=== PATIENT | male | born 1955 | race Caucasian/White ===

== ENCOUNTER 2017-06-02 14:31 | Inpatient (IN) ==
[2017-06-02 14:59] LABS: Bilirubin,Urine Small (Negative); Blood,Urine Negative (Negative); Clarity,Urine Cloudy (Clear); Color,Urine Dark Yellow (Yellow); Glucose,Urine (UA) Normal (Normal); Ketones,Urine Trace mg/dL (Negative); Leukocyte Esterase,Urine Trace (Negative); Nitrite,Urine Negative (Negative); Protein,Urine Negative (Neg-Trace); Urobilinogen,Urine Normal (Normal)
[2017-06-02 15:02] LABS: Bacteria,Urine None Seen per hpf (None-Few); Hyaline Casts,Urine None Seen per lpf (None-Few); Squamous Epithelial Cell,Urine Few per lpf (None-Few); WBC,Urine 0-3 per hpf (0-3)
[2017-06-02 15:15] LABS: RBC,Urine 0-3 per hpf (0-3)
[2017-06-02 15:22] LABS: Basophils % 0.1 %; Hematocrit 46.5 % (37.5-50.1); Hemoglobin 16.6 g/dL (12.9-16.9); Immature Granulocytes % 0.5 % (0-4); Lymphocytes # 0.7 K/mcL (0.6-4.6); Mean Corpuscular HGB Conc 35.7 g/dL (31.6-35.5); Mean Corpuscular Hemoglobin 31.4 pg (28.0-33.3); Mean Corpuscular Volume 88.1 fL (83.0-100.0); Mean Platelet Volume 10.8 fL (9.4-12.4); Monocytes # 1.2 K/mcL (0.0-1.3); Neutrophils # 21.1 K/mcL (1.6-8.9); Platelet Count 300 K/mcL (140-400); Red Blood Count 5.28 M/mcL (4.19-5.50); Red Cell Distribution Width 13.7 % (11.5-14.5); Segmented Neutrophils % 91.4 %
[2017-06-02] MEDS ORDERED: Ondansetron 4 MG/2 ML VIAL IVP ONE (15:29)
[2017-06-02] MEDS ORDERED: 0.9 % Sodium Chloride 1,000 ML IVC ONE (15:29)
[2017-06-02] MEDS ORDERED: *HR* FentaNYL (PF) 100 MCG/2 ML VIAL IVP ONE ×4 (15:31→19:46)
--- NOTE | 2017-06-02 15:32 | Emergency Department Note ---
Disposition Clinical Impression: Colitis, Mass of stomach GI bleeding Qualifiers: GI bleed type/associated pathology: unspecified gastrointestinal hemorrhage type Qualified Code(s): K92.2 - Gastrointestinal hemorrhage, unspecified Disposition: Admitted As Inpatient Condition: Good Time of Disposition: 18:56 Abdominal Pain HPI - General Chief Complaint: ED Abdominal Pain Stated Complaint: Abdominal Pain, "blood in stool" Time Seen by Provider: 06/02/17 15:14 Source: patient Nursing Notes Reviewed: Yes Vital Signs Reviewed: Yes - History of Present Illness HPI Narrative: Complaining of abdominal cramping that started around 5 AM this morning. Then he started having a bright red stool around 10 AM. Denies any shortness of breath or chest pain. Reports cramping sensation across his whole abdomen with the worsening in his lower abdomen. Nausea and 3 episodes of vomiting. Pain Scale: 10 - Related Data Home Medications Medication Instructions Recorded Confirmed Aspirin Enteric Coated [Aspirin EC] 81 mg PO DAILY 06/02/17 06/02/17 Atorvastatin Calcium [Lipitor] 80 mg PO HS 06/02/17 06/02/17 Clopidogrel [Plavix] 75 mg PO DAILY 06/02/17 06/02/17 Cyclobenzaprine [Flexeril] 10 mg PO TID 06/02/17 06/02/17 Finasteride [Proscar] 5 mg PO DAILY 06/02/17 06/02/17 Lisinopril [Lisinopril] 2.5 mg PO DAILY 06/02/17 06/02/17 Metoprolol [Lopressor] 25 mg PO BID 06/02/17 06/02/17 Nitroglycerin [Nitrostat] 0.4 mg PO Q5M PRN 06/02/17 06/02/17 Tamsulosin [Flomax] 0.4 mg PO DAILY 06/02/17 06/02/17 Allergies Allergy/AdvReac Type Severity Reaction Status Date / Time No Known Allergies Allergy Unverified 08/09/15 07:59 All systems ED: reviewed and negative except as stated. Constitutional: Denies: fever, chills Cardiovascular: Denies: chest pain, palpitations, edema Respiratory: Denies: cough, dyspnea Gastrointestinal: Reports: abdominal pain (Cramping sensation across the whole abdomen worse in the lower quadrants. ), nausea, vomiting, hematochezia. Denies: hematemesis, melena Genitourinary: Denies: urgency, dysuria, frequency, hematuria Musculoskeletal: Denies: back pain, neck pain Integumentary: Denies: rash Neurological: Denies: headache, weakness Abdominal Pain PMH - Past Medical History Medical history: Reports: hyperlipidemia, hypertension Male Surgical History: Reports: angioplasty/stent, orthopedic, other Psychiatric history: Reports: no psych history - Social History Smoking status: Current every day smoker Alcohol use: Reports: rarely Drug use: Reports: none Physical Exam - General Limitations: no limitations General appearance: alert, in distress (Appears to be in pain) - Head Head exam: atraumatic, normocephalic, normal inspection - Eye Eye exam: Present: normal appearance, PERRL, EOMI. Absent: scleral icterus - ENT ENT exam: normal exam, normal oropharynx, mucous membranes moist - Neck Neck exam: Present: normal inspection, full ROM, trachea midline - Chest Chest inspection: Present: normal inspection, symmetric chest wall rise. Absent : tenderness - Respiratory Respiratory exam: Present: normal lung sounds bilaterally. Absent: respiratory distress, accessory muscle use - Cardiovascular Cardiovascular exam: Present: regular rate, normal rhythm, normal heart sounds - Abdominal Exam Abdominal exam: Present: soft, tenderness (Palpation of entire abdomen), guarding, normal bowel sounds. Absent: distention, rigidity, organomegaly - Extremities Exam Extremities exam: Present: normal inspection, full ROM, normal capillary refill. Absent: tenderness, pedal edema - Neurological Exam Neurological exam: Present: alert, oriented X3 - Psychiatric Psychiatric exam: Present: normal affect, normal mood - Skin Skin exam: Present: warm, dry, intact, normal color Course Course Narrative: Male patient presenting to the emergency department complaining of abdominal pain that started around 5 AM this morning. 8 around 10:00 he started having rectal bleeding. He describes it as bright red. Has never happened to him before. He describes abdominal pain as a cramping sensation that is still present at this time. He has had 2-3 episodes of nausea and vomiting since the pain started this morning. He has no history of cancer. Is a smoker. Denies any blood thinning agents. Patient denies any shortness of breath or chest pain. His lung sounds are clear heart tones are normal. His abdomen is soft but exquisitely tender. His pain is out of proportion. He is not appear to be peritoneal on exam however. Echo exam he does have bright red blood per rectum. I do not appreciate any fissures or hemorrhoids. Will provide patient with pain medication and antinausea medication will do lab workup and get a CT with contrast of his abdomen and pelvis. Patient's vitals are currently stable. - Reevaluation(s) Reevaluation #1: Pt states that pain medication did help him. CT of patient's abdomen showed a probable mass in the patient's stomach as well as ascending colitis. We will start patient on Cipro Flagyl we did speak with Dr. Marin who is requesting admission for the patient. I agree with this plan. His vitals have been stable he is here. Hemoglobin has been normal. Fecal occult stool was positive grossly for blood. Time: 18:53 - Consultations Consultation #1: Dr Kendall accepted Pt in stable condition. Time: 19:39 Consultation #2: Dr Metzger spoke with Dr Coronado who recommends admission. Vital Signs Temperature 97.7 F 06/02/17 14:33 Pulse Rate 89 06/02/17 14:33 Respiratory Rate 18 06/02/17 14:33 Blood Pressure 137/77 06/02/17 14:33 O2 Sat by Pulse Oximetry 98 06/02/17 14:33 Temperature 98.2 F 06/02/17 22:36 Pulse Rate 92 06/02/17 22:36 Respiratory Rate 16 06/02/17 22:36 Blood Pressure 144/74 06/02/17 22:36 O2 Sat by Pulse Oximetry 93 06/02/17 22:36 Oxygen Delivery Oxygen Delivery Room Air Abdominal Pain - Medical Records Medical records reviewed: Yes I reviewed the patient's medical records. - Lab Data Lab results reviewed: Yes I reviewed the patient's lab results. Result diagrams: 06/02/17 14:37 06/02/17 14:37 Lab Results 06/02/17 06/02/17 06/02/17 Range/Units 14:37 14:37 14:48 WBC 23.1 H (4.3-11.1) K/mcL RBC 5.28 (4.19-5.50) M/mcL Hgb 16.6 (12.9-16.9) g/dL Hct 46.5 (37.5-50.1) % MCV 88.1 (83.0-100.0) fL MCH 31.4 (28.0-33.3) pg MCHC 35.7 H (31.6-35.5) g/dL RDW 13.7 (11.5-14.5) % Plt Count 300 (140-400) K/mcL MPV 10.8 (9.4-12.4) fL Immature Gran % 0.5 (0-4) % Seg Neutrophils % 91.4 % Lymphocytes % 3.0 % Monocytes % 5.0 % Eosinophils % 0.0 % Basophils % 0.1 % Neutrophils # 21.1 H (1.6-8.9) K/mcL Lymphocytes # 0.7 (0.6-4.6) K/mcL Monocytes # 1.2 (0.0-1.3) K/mcL Eosinophils # 0.0 (0.0-0.6) K/mcL Basophils # 0.0 (0.0-0.2) K/mcL Platelet Estimate Normal (Normal) PT (9.4-12.1) Seconds INR APTT (26.0-36.0) Seconds Sodium 135 L (136-145) mEq/L Potassium 4.1 (3.5-5.1) mEq/L Chloride 106 (98-107) mEq/L Carbon Dioxide 19 L (23-29) mEq/L BUN 15 (8-23) mg/dL Creatinine 0.80 (0.70-1.30) mg/dL Est GFR ( Amer) > 60 (> 60) Est GFR (Non-Af Amer) > 60 (> 60) BUN/Creatinine Ratio 19 (6-26) Glucose 188 H (70-105) mg/dL Calculated Osmolality 286 (280-300) Lactic Acid (0.5-2.2) mmol/L Calcium 9.8 (8.6-10.3) mg/dL Total Bilirubin (0.3-1.0) mg/dL Direct Bilirubin (0.0-0.2) mg/dL Indirect Bilirubin (0.0-1.2) mg/dL AST (13-39) Units/L ALT (7-52) Units/L Alkaline Phosphatase (34-104) Units/L Troponin I (< 0.04) ng/mL Serum Total Protein (6.4-8.9) g/dL Albumin (3.5-5.7) g/dL Globulin (2.4-3.5) g/dL Albumin/Globulin Ratio (1.1-2.2) Lipase (11-82) Units/L Urine Color Dark Yellow (Yellow) Urine Clarity Cloudy A (Clear) Urine pH 6.0 (5.0-8.0) pH Units Ur Specific [place] 1.020 (1.010-1.025) Urine Protein Negative (Neg-Trace) mg/dL Urine Glucose (UA) Normal (Normal) mg/dL Urine Ketones Trace H (Negative) mg/dL Urine Blood Negative (Negative) Urine Nitrite Negative (Negative) Urine Bilirubin Small H (Negative) Urine Urobilinogen Normal (Normal) mg/dL Ur Leukocyte Esterase Trace H (Negative) Urine Microscopic RBC 0-3 (0-3) per hpf Urine Microscopic WBC 0-3 (0-3) per hpf Ur Squamous Epith Cells Few (None-Few) per lpf Urine Bacteria None Seen (None-Few) per hpf Hyaline Casts None Seen (None-Few) per lpf Ur Culture Indicated? YES A (NO) Blood Type Antibody Screen 06/02/17 06/02/17 06/02/17 Range/Units 15:00 15:43 15:43 WBC (4.3-11.1) K/mcL RBC (4.19-5.50) M/mcL Hgb (12.9-16.9) g/dL Hct (37.5-50.1) % MCV (83.0-100.0) fL MCH (28.0-33.3) pg MCHC (31.6-35.5) g/dL RDW (11.5-14.5) % Plt Count (140-400) K/mcL MPV (9.4-12.4) fL Immature Gran % (0-4) % Seg Neutrophils % % Lymphocytes % % Monocytes % % Eosinophils % % Basophils % % Neutrophils # (1.6-8.9) K/mcL Lymphocytes # (0.6-4.6) K/mcL Monocytes # (0.0-1.3) K/mcL Eosinophils # (0.0-0.6) K/mcL Basophils # (0.0-0.2) K/mcL Platelet Estimate (Normal) PT 11.3 (9.4-12.1) Seconds INR 1.1 APTT 29.3 (26.0-36.0) Seconds Sodium (136-145) mEq/L Potassium (3.5-5.1) mEq/L Chloride (98-107) mEq/L Carbon Dioxide (23-29) mEq/L BUN (8-23) mg/dL Creatinine (0.70-1.30) mg/dL Est GFR ( Amer) (> 60) Est GFR (Non-Af Amer) (> 60) BUN/Creatinine Ratio (6-26) Glucose (70-105) mg/dL Calculated Osmolality (280-300) Lactic Acid (0.5-2.2) mmol/L Calcium (8.6-10.3) mg/dL Total Bilirubin 0.8 (0.3-1.0) mg/dL Direct Bilirubin 0.2 (0.0-0.2) mg/dL Indirect Bilirubin 0.6 (0.0-1.2) mg/dL AST 16 (13-39) Units/L ALT 21 (7-52) Units/L Alkaline Phosphatase 96 (34-104) Units/L Troponin I < 0.03 (< 0.04) ng/mL Serum Total Protein 6.8 (6.4-8.9) g/dL Albumin 4.2 (3.5-5.7) g/dL Globulin 2.6 (2.4-3.5) g/dL Albumin/Globulin Ratio 1.6 (1.1-2.2) Lipase < 3 L (11-82) Units/L Urine Color (Yellow) Urine Clarity (Clear) Urine pH (5.0-8.0) pH Units Ur Specific [place] (1.010-1.025) Urine Protein (Neg-Trace) mg/dL Urine Glucose (UA) (Normal) mg/dL Urine Ketones (Negative) mg/dL Urine Blood (Negative) Urine Nitrite (Negative) Urine Bilirubin (Negative) Urine Urobilinogen (Normal) mg/dL Ur Leukocyte Esterase (Negative) Urine Microscopic RBC (0-3) per hpf Urine Microscopic WBC (0-3) per hpf Ur Squamous Epith Cells (None-Few) per lpf Urine Bacteria (None-Few) per hpf Hyaline Casts (None-Few) per lpf Ur Culture Indicated? (NO) Blood Type O POSITIVE Antibody Screen NEGATIVE 06/02/17 06/02/17 06/02/17 Range/Units 15:43 18:31 22:25 WBC (4.3-11.1) K/mcL RBC (4.19-5.50) M/mcL Hgb (12.9-16.9) g/dL Hct (37.5-50.1) % MCV (83.0-100.0) fL MCH (28.0-33.3) pg MCHC (31.6-35.5) g/dL RDW (11.5-14.5) % Plt Count (140-400) K/mcL MPV (9.4-12.4) fL Immature Gran % (0-4) % Seg Neutrophils % % Lymphocytes % % Monocytes % % Eosinophils % % Basophils % % Neutrophils # (1.6-8.9) K/mcL Lymphocytes # (0.6-4.6) K/mcL Monocytes # (0.0-1.3) K/mcL Eosinophils # (0.0-0.6) K/mcL Basophils # (0.0-0.2) K/mcL Platelet Estimate (Normal) PT (9.4-12.1) Seconds INR APTT (26.0-36.0) Seconds Sodium (136-145) mEq/L Potassium (3.5-5.1) mEq/L Chloride (98-107) mEq/L Carbon Dioxide (23-29) mEq/L BUN (8-23) mg/dL Creatinine (0.70-1.30) mg/dL Est GFR ( Amer) (> 60) Est GFR (Non-Af Amer) (> 60) BUN/Creatinine Ratio (6-26) Glucose (70-105) mg/dL Calculated Osmolality (280-300) Lactic Acid 2.1 1.5 (0.5-2.2) mmol/L Calcium (8.6-10.3) mg/dL Total Bilirubin (0.3-1.0) mg/dL Direct Bilirubin (0.0-0.2) mg/dL Indirect Bilirubin (0.0-1.2) mg/dL AST (13-39) Units/L ALT (7-52) Units/L Alkaline Phosphatase (34-104) Units/L Troponin I 0.03 (< 0.04) ng/mL Serum Total Protein (6.4-8.9) g/dL Albumin (3.5-5.7) g/dL Globulin (2.4-3.5) g/dL Albumin/Globulin Ratio (1.1-2.2) Lipase (11-82) Units/L Urine Color (Yellow) Urine Clarity (Clear) Urine pH (5.0-8.0) pH Units Ur Specific [place] (1.010-1.025) Urine Protein (Neg-Trace) mg/dL Urine Glucose (UA) (Normal) mg/dL Urine Ketones (Negative) mg/dL Urine Blood (Negative) Urine Nitrite (Negative) Urine Bilirubin (Negative) Urine Urobilinogen (Normal) mg/dL Ur Leukocyte Esterase (Negative) Urine Microscopic RBC (0-3) per hpf Urine Microscopic WBC (0-3) per hpf Ur Squamous Epith Cells (None-Few) per lpf Urine Bacteria (None-Few) per hpf Hyaline Casts (None-Few) per lpf Ur Culture Indicated? (NO) Blood Type Antibody Screen - Radiology Data Radiology results reviewed: Yes I reviewed the patient's radiology results. Abdomen/Pelvis CT 06/02/17 15:30 IMPRESSION: Acute colitis of the descending colon. Incidentally noted mass within the stomach, worrisome for malignancy. Recommend upper endoscopy for further evaluation. D/ / Chris Leslie MD / Chris Leslie MD Interpreting Provider: Chris Leslie MD - EKG Data EKG attestation: Yes I reviewed and interpreted this EKG. EKG results narrative: Normal sinus rhythm at a rate of 90. HI intervals 171. QRS duration is 77. QT is 332. QTC is 379. No signs of acute ischemia. No significant change from previous EKG dated 05/18/2014. Attestation Statement - Attestation Attestation: I examined this patient and my medical decision-making was reviewed with the Resident Physician. I agree with the documented findings, disposition and treatment plan as described except to the extent set forth below. Findings consistent with stomach mass as well as colitis. Patient was started on antibiotics, C. difficile will be checked. Consult to general surgery for inpatient endoscopy to evaluate abdominal mass. There is evidence of GI hemorrhage. The patient has stable hemoglobin. Proceed with admission for further evaluation.
[2017-06-02 15:40] LABS: BUN/Creatinine Ratio 19 (6-26); Blood Urea Nitrogen 15 mg/dL (8-23); Calcium 9.8 mg/dL (8.6-10.3); Carbon Dioxide 19 mEq/L (23-29); Chloride 106 mEq/L (98-107); Glucose 188 mg/dL (70-105); Osmolality,Calculated 286 (280-300); Potassium 4.1 mEq/L (3.5-5.1); Sodium 135 mEq/L (136-145); eGFR For African Americans > 60 (> 60); eGFR For Non-African Americans > 60 (> 60)
[2017-06-02 15:47] LABS: Platelet Estimate Normal (Normal)
[2017-06-02 16:24] LABS: INR 1.1; Prothrombin Time 11.3 Seconds (9.4-12.1)
[2017-06-02 16:27] LABS: Activated Partial Thrombo Time 29.3 Seconds (26.0-36.0)
[2017-06-02 16:28] LABS: Alanine Aminotransferase 21 Units/L (7-52); Albumin 4.2 g/dL (3.5-5.7); Albumin/Globulin Ratio 1.6 (1.1-2.2); Alkaline Phosphatase 96 Units/L (34-104); Aspartate Amino Transferase 16 Units/L (13-39); Bilirubin,Direct 0.2 mg/dL (0.0-0.2); Bilirubin,Indirect 0.6 mg/dL (0.0-1.2); Bilirubin,Total 0.8 mg/dL (0.3-1.0); Globulin 2.6 g/dL (2.4-3.5); Lipase < 3 Units/L (11-82); Total Protein 6.8 g/dL (6.4-8.9)
[2017-06-02] MEDS ORDERED: *HR* LORazepam 2 MG/ML VIAL IVP ONE (16:28)
[2017-06-02 16:30] LABS: Troponin I < 0.03 ng/mL (< 0.04)
[2017-06-02] MEDS ORDERED: MetroNIDAZOLE 500 MG/100 ML 500 MG/100 ML BAG IVPB ONE (18:15)
[2017-06-02] MEDS: 0.9 % Sodium Chloride 1,000 ML IVC SCH ×2 (20:03→23:15)
--- NOTE | 2017-06-02 21:30 | Internal Med History&Physical ---
Date of Encounter: 06/02/17 Time of Encounter: 21:27 Assessment and Plan (1) CAD (coronary artery disease) Current visit: Yes Status: Chronic History of angioplasty , on plavix . About 18 years no recent angioplasty or stent placemento would be safe to stop the Plavix at this point Qualifiers: Coronary Disease-Associated Artery/Lesion type: [place] artery [place] vs. transplanted heart: [place] heart Associated angina: without angina Qualified Code(s): I25.10 - Atherosclerotic heart disease of [place] coronary artery without angina pectoris (2) HTN (hypertension) Current visit: Yes Status: Chronic Chronic we will resume home medication Qualifiers: Hypertension type: essential hypertension Qualified Code(s): I10 - Essential (primary) hypertension (3) Hyperlipidemia Current visit: Yes Status: Chronic Chronic check a lipid profile in a.m. Qualifiers: Hyperlipidemia type: pure hypercholesterolemia Qualified Code(s): E78.00 - Pure hypercholesterolemia, unspecified; E78.0 - Pure hypercholesterolemia (4) Colitis Current visit: Yes Status: Acute Acute colitis white count is 23,000 will continue on Flagyl and Cipro (5) GI bleeding Current visit: Yes Status: Acute Lower GI bleed of rectal bleeding started this morning hemoglobin is [address] Marin is consulted Qualifiers: GI bleed type/associated pathology: unspecified gastrointestinal hemorrhage type Qualified Code(s): K92.2 - Gastrointestinal hemorrhage, unspecified (6) Mass of stomach Current visit: Yes Status: Acute Incidental finding of mass in the stomach will need further evaluation (7) Leukocytosis Current visit: Yes Status: Acute Leukocytosis with left shift likely due to colitis Qualifiers: Leukocytosis type: bandemia Qualified Code(s): D72.825 - Bandemia Internal Medicine - H&P: HPI Chief complaint: rcatal bleeding Admitted From: Emergency Dept Plans for Post Hospital Care: Home History of present illness: Mr. Pritchett is a 62 year old male Patient with history of CAD had a stent placed in the past and been on plavix for about 18 years, history of high cholesterol, smoking history. Patient presented emergency room with lower abdominal pain describes a crampy also some rectal bleeding started this morning had had 3 episode of nausea and vomiting but no vomiting of blood CT of the abdomen the ER shows probable mass in the stomach with ascending colitis He is started on Flagyl and Cipro in the ER hemoglobin is 16 he is hemodynamically stable Dr. Marin is consulted for endoscopy. Denies any chest pain no shortness of breath no other symptoms no prior history of GI bleed Past Med Surg Social Fam HX - Past Medical History Medical history: coronary artery disease, hyperlipidemia, hypertension Psychiatric history: no psych history - Past Surgical History Surgical History: angioplasty/stent - Social History Smoking Status: Current every day smoker Smokeless Tobacco Status: No Alcohol use: rarely Drug use: none Internal Medicine - H&P: Meds Aspirin Enteric Coated [Aspirin EC] 81 mg PO DAILY 06/02/17 [History] Atorvastatin Calcium [Lipitor] 80 mg PO HS 06/02/17 [History] Clopidogrel [Plavix] 75 mg PO DAILY 06/02/17 [History] Cyclobenzaprine [Flexeril] 10 mg PO TID 06/02/17 [History] Finasteride [Proscar] 5 mg PO DAILY 06/02/17 [History] Lisinopril [Lisinopril] 2.5 mg PO DAILY 06/02/17 [History] Metoprolol [Lopressor] 25 mg PO BID 06/02/17 [History] Nitroglycerin [Nitrostat] 0.4 mg PO Q5M PRN 06/02/17 [History] Tamsulosin [Flomax] 0.4 mg PO DAILY 06/02/17 [History] 3 Allergy/AdvReac Type Severity Reaction Status Date / Time No Known Allergies Allergy Unverified 08/09/15 07:59 All Systems PM: A 10-system review of systems was performed and is negative for pertinent findings except as documented above in the HPI. - Constitutional Constitutional: other - EENT Eyes: no change in vision, no discharge, no pain, no photophobia Ears: no ear discharge, no ear pain, no tinnitus Nose, mouth and throat: no dysphagia, no nasal discharge, no neck pain, no sore throat - Cardiovascular Cardiovascular ROS IM: no chest pain, no diaphoresis, no dyspnea, no lightheadedness, no palpitations, no syncope - Respiratory Respiratory: no cough, no dyspnea, no wheezing, no excessive phlegm production - Gastrointestinal Gastrointestinal: hematochezia, other - Musculoskeletal Musculoskeletal ROS IM: no numbness, no tingling - Integumentary Integumentary IM: no rash, no unusual bruising - Constitutional Vitals: Temp Pulse Resp BP Pulse Ox 97.7 F 87 18 161/76 93 06/02/17 14:33 06/02/17 21:05 06/02/17 17:14 06/02/17 21:05 06/02/17 21:05 - Head Head exam: Present: atraumatic, normocephalic - Eye Eye exam: Present: PERRL, conjuntiva pink, sclera anicteric Pupils: Present: PERRL - Neck Neck exam general surgery: Present: supple, trachea midline. Absent: lymphadenopathy - Respiratory Respiratory exam: Present: CTAB. Absent: accessory muscle use, rales, rhonchi, wheezes - Cardiovascular Cardiovascular exam: Present: RRR, +S1, +S2. Absent: diastolic murmur, gallop, rubs, systolic murmur - GI/Abdominal GI/Abdominal exam: Present: mass, tenderness Internal Med - H&P Results - Labs CBC & Chem 7: 06/02/17 14:37 06/02/17 14:37
[2017-06-02] MEDS ORDERED: Naloxone 0.4 MG/ML INJ IVP PRN (21:40)
[2017-06-02] MEDS: MetroNIDAZOLE 500 MG/100 ML 500 MG/100 ML BAG IVPB SCH (23:15)
[2017-06-03] MEDS: 0.9 % Sodium Chloride 1,000 ML IVC SCH ×4 (02:36→20:24)
[2017-06-03 04:21] LABS: Basophils % 0.2 %; Eosinophils % 0.1 %; Hematocrit 39.6 % (37.5-50.1); Immature Granulocytes % 0.6 % (0-4); Lymphocytes # 1.5 K/mcL (0.6-4.6); Lymphocytes % 7.8 %; Mean Corpuscular HGB Conc 35.4 g/dL (31.6-35.5); Mean Corpuscular Hemoglobin 31.6 pg (28.0-33.3); Mean Corpuscular Volume 89.4 fL (83.0-100.0); Mean Platelet Volume 10.8 fL (9.4-12.4); Monocytes # 1.5 K/mcL (0.0-1.3); Monocytes % 7.6 %; Platelet Count 254 K/mcL (140-400); Red Blood Count 4.43 M/mcL (4.19-5.50); Red Cell Distribution Width 13.9 % (11.5-14.5); Segmented Neutrophils % 83.7 %
[2017-06-03 04:33] LABS: Alanine Aminotransferase 15 Units/L (7-52); Albumin 3.6 g/dL (3.5-5.7); Albumin/Globulin Ratio 1.6 (1.1-2.2); Alkaline Phosphatase 69 Units/L (34-104); Aspartate Amino Transferase 12 Units/L (13-39); BUN/Creatinine Ratio 15 (6-26); Bilirubin,Total 0.8 mg/dL (0.3-1.0); Blood Urea Nitrogen 11 mg/dL (8-23); Calcium 8.5 mg/dL (8.6-10.3); Carbon Dioxide 22 mEq/L (23-29); Chloride 108 mEq/L (98-107); Chol/HDL Ratio 3.6 (0-4.9); Cholesterol 130 mg/dL (< 200); Globulin 2.2 g/dL (2.4-3.5); Glucose 142 mg/dL (70-105); HDL Cholesterol 36 mg/dL (40-59); LDL Cholesterol,Calculated 77 mg/dL (0-99); Magnesium 1.8 mg/dL (1.6-2.6); Osmolality,Calculated 286 (280-300); Potassium 3.5 mEq/L (3.5-5.1); Sodium 137 mEq/L (136-145); Total Protein 5.8 g/dL (6.4-8.9); Triglycerides 84 mg/dL (< 150); eGFR For African Americans > 60 (> 60); eGFR For Non-African Americans > 60 (> 60)
[2017-06-03] MEDS ORDERED: Acetaminophen IV 500 MG/50 ML INFUS..BTL IVPB ONE (06:12)
[2017-06-03] MEDS: MetroNIDAZOLE 500 MG/100 ML 500 MG/100 ML BAG IVPB SCH ×3 (07:57→22:54)
[2017-06-03] MEDS: Pantoprazole 40 MG VIAL IVP SCH (07:57)
[2017-06-03] MEDS: Finasteride 5 MG TABLET PO SCH (07:58)
[2017-06-03] MEDS: Acetaminophen 325 MG TABLET PO PRN (08:00)
[2017-06-03] MEDS ORDERED: *HR* FentaNYL (PF) 100 MCG/2 ML VIAL IVP ONE ×2 (08:24→16:14)
[2017-06-03 09:06] LABS: Hematocrit 38.4 % (37.5-50.1); Hemoglobin 13.1 g/dL (12.9-16.9)
[2017-06-03 11:00] LABS: Hematocrit 37.6 % (37.5-50.1); Hemoglobin 13.3 g/dL (12.9-16.9)
[2017-06-03] MEDS ORDERED: Polyethylene Glycol 3350 255 GM POWDER PO ONE (11:25)
--- NOTE | 2017-06-03 11:32 | General Surgery Consult Note ---
Date of Encounter: 06/03/17 Time of Encounter: 11:00 Assessment and Plan (1) Colitis Current Visit: Yes Status: Acute No urgent surgical intervention indicated at this time Continue bowel rest IF fluids IV antibiotics- Cipro and Flagyl are appropriate Serial abdominal exams Plan for interval colonoscopy in 6-[address] Coronado Continue to monitor blood loss (2) Mass of stomach Current Visit: Yes Status: Acute NPO IV fluids Plan for EGD in the next 24 hours with General surgery for further evaluation History of Present Illness Consult date: 06/03/17 Requesting physician: Ainsley Huntley History of present illness: Mr. Pritchett is a 62 year old male who presented to the ED with acute onset of central abdominal pain at 5am yesterday morning. The patient reports having pain like this in the past. He reports that the pain yesterday was followed by multiple episodes of bright red blood per rectum (he is unable to quantify how much blood). The patient denies any feeling of dizziness, syncope, shortness of breath or chest pain. He states that he did feel hot prior to passing blood and then after passing bright red blood per rectum he was freezing. He denies any dysphagia. He does admit to nausea and vomiting yesterday and states that he vomited 4-5 times. He denies any hematemesis or coffee-ground emesis. He denies any fevers. He denies any difficulty with urination. The patient states that he typically has a bowel movement on a daily basis however occasionally he does have constipation and goes 4-5 days without a bowel movement. He states his last colonoscopy was 5 years ago and he had 2 polyps removed at the [facility]. He cannot recall whether he is ever had an EGD. He denies any unexplained weight loss. He has had an abnormal CAT scan which shows evidence of colitis and a gastric mass. We have been asked to see and evaluate the patient for evaluation and recommendations. Past Med Surg Social Fam HX - Past Medical History Source: patient, old records reviewed Medical history: arthritis, hyperlipidemia, hypertension, other (Fibromyalgia, chronic back pain, degenerative disc disease) Psychiatric history: no psych history - Past Surgical History Surgical History: angioplasty/stent, appendectomy (Open), knee replacement ( bilateral), orthopedic, other (Between both of his knees), other (Colonoscopy complete 5 years ago) - Social History Smoking Status: Current every day smoker Smokeless Tobacco Status: No Alcohol use: rarely Drug use: none Current living situation: Home - Independent Activity Level: Independent ambulation - Family History Father Living Status: Hx Family Cardiac Disorders: Yes (cva, HTN) Hx Family Respiratory Disorders: No Hx Family Cancer: No Hx Family GI Disorders: No Hx Family Genitourinary Disorders: No Hx Family Endocrine Disorder: Yes (Diabetes Mellitus) Hx Family Musculoskeletal Disorders: No Hx Family Neuromuscular Disorders: No Hx Family Neurologic Disorders: No Hx Family HEENT Disorders: No Hx Family Autoimmune Disorders: No Hx Family Reproductive Disorders: No Hx Family Psychosocial Disorders: No Hx Family Medical Disorders: No Mother Living Status: Hx Family Cardiac Disorders: No Hx Family Respiratory Disorders: Yes (copd) Hx Family Cancer: Yes Hx Family GI Disorders: No Hx Family Genitourinary Disorders: No Hx Family Endocrine Disorder: Yes (Diabetes Mellitus) Hx Family Musculoskeletal Disorders: No Hx Family Neuromuscular Disorders: No Hx Family Neurologic Disorders: No Hx Family HEENT Disorders: No Hx Family Autoimmune Disorders: No Hx Family Reproductive Disorders: No Hx Family Psychosocial Disorders: No Hx Family Medical Disorders: No Medications and Allergies Aspirin Enteric Coated [Aspirin EC] 81 mg PO DAILY 06/02/17 [History] Atorvastatin Calcium [Lipitor] 80 mg PO HS 06/02/17 [History] Clopidogrel [Plavix] 75 mg PO DAILY 06/02/17 [History] Cyclobenzaprine [Flexeril] 10 mg PO TID 06/02/17 [History] Finasteride [Proscar] 5 mg PO DAILY 06/02/17 [History] Lisinopril [Lisinopril] 2.5 mg PO DAILY 06/02/17 [History] Metoprolol [Lopressor] 25 mg PO BID 06/02/17 [History] Nitroglycerin [Nitrostat] 0.4 mg PO Q5M PRN 06/02/17 [History] Tamsulosin [Flomax] 0.4 mg PO DAILY 06/02/17 [History] 3 Allergy/AdvReac Type Severity Reaction Status Date / Time No Known Allergies Allergy Unverified 08/09/15 07:59 Review of Systems All systems PM: reviewed and no additional remarkable complaints except as stated (in the HPI) All systems PM: The remainder of the systems were reviewed and are negative General Surgery Exam Initial Vital Signs Temp Pulse Resp BP Pulse Ox 97.7 F 89 18 137/77 98 06/02/17 14:33 06/02/17 14:33 06/02/17 14:33 06/02/17 14:33 06/02/17 14:33 - General physical appearance well developed, well nourished, no distress - Eyes other (Conjunctiva are pink), PERRL, normal ocular movement - ENT dry mucosa, atraumatic, normocephalic - Neck trachea midline - Respiratory normal respiratory effort, clear to auscultation - Cardiovascular Cardiovascular exam: Present: RRR - Abdomen Abdomen general surgery: Present: bowel sounds present, soft, tender (central abdomen) - Integumentary Integumentary general surgery: Present: warm and dry - Neurologic Present: CN 2-12 grossly intact - Musculoskeletal Present: normal gait, normal posture - Psychiatric Psychiatric general surgery: Present: appropriate, oriented to person, oriented to place, oriented to time, speech is normal, memory intact Exam Initial Vital Signs Temp Pulse Resp BP Pulse Ox 97.7 F 89 18 137/77 98 06/02/17 14:33 06/02/17 14:33 06/02/17 14:33 06/02/17 14:33 06/02/17 14:33 Results - Labs 06/03/17 10:45 06/03/17 03:49 Abnormal lab results WBC 19.1 K/mcL (4.3-11.1) H 06/03/17 03:49 Neutrophils # 16.0 K/mcL (1.6-8.9) H 06/03/17 03:49 Monocytes # 1.5 K/mcL (0.0-1.3) H 06/03/17 03:49 Chloride 108 mEq/L (98-107) H 06/03/17 03:49 Carbon Dioxide 22 mEq/L (23-29) L 06/03/17 03:49 Glucose 142 mg/dL (70-105) H 06/03/17 03:49 Calcium 8.5 mg/dL (8.6-10.3) L 06/03/17 03:49 AST 12 Units/L (13-39) L 06/03/17 03:49 Serum Total Protein 5.8 g/dL (6.4-8.9) L 06/03/17 03:49 Globulin 2.2 g/dL (2.4-3.5) L 06/03/17 03:49 HDL Cholesterol 36 mg/dL (40-59) L 06/03/17 03:49 Lipase < 3 Units/L (11-82) L 06/02/17 15:43 Urine Clarity Cloudy (Clear) A 06/02/17 14:48 Urine Ketones Trace mg/dL (Negative) H 06/02/17 14:48 Urine Bilirubin Small (Negative) H 06/02/17 14:48 Ur Leukocyte Esterase Trace (Negative) H 06/02/17 14:48 Ur Culture Indicated? YES (NO) A 06/02/17 14:48 Diabetes panel 06/03/17 Range/Units 03:49 Sodium 137 (136-145) mEq/L Potassium 3.5 (3.5-5.1) mEq/L Chloride 108 H (98-107) mEq/L Carbon Dioxide 22 L (23-29) mEq/L BUN 11 (8-23) mg/dL Creatinine 0.73 (0.70-1.30) mg/dL Glucose 142 H (70-105) mg/dL Calcium 8.5 L (8.6-10.3) mg/dL AST 12 L (13-39) Units/L ALT 15 (7-52) Units/L Alkaline Phosphatase 69 (34-104) Units/L Albumin 3.6 (3.5-5.7) g/dL Triglycerides 84 (< 150) mg/dL HDL Cholesterol 36 L (40-59) mg/dL Calcium panel 06/03/17 Range/Units 03:49 Calcium 8.5 L (8.6-10.3) mg/dL Albumin 3.6 (3.5-5.7) g/dL Pituitary panel 06/03/17 Range/Units 03:49 Sodium 137 (136-145) mEq/L Potassium 3.5 (3.5-5.1) mEq/L Chloride 108 H (98-107) mEq/L Carbon Dioxide 22 L (23-29) mEq/L BUN 11 (8-23) mg/dL Creatinine 0.73 (0.70-1.30) mg/dL Glucose 142 H (70-105) mg/dL Calcium 8.5 L (8.6-10.3) mg/dL Adrenal panel 03/15/18 Range/Units 03:49 Sodium 137 (136-145) mEq/L Potassium 3.5 (3.5-5.1) mEq/L Chloride 108 H (98-107) mEq/L Carbon Dioxide 22 L (23-29) mEq/L BUN 11 (8-23) mg/dL Creatinine 0.73 (0.70-1.30) mg/dL Glucose 142 H (70-105) mg/dL Calcium 8.5 L (8.6-10.3) mg/dL Total Bilirubin 0.8 (0.3-1.0) mg/dL AST 12 L (13-39) Units/L ALT 15 (7-52) Units/L Alkaline Phosphatase 69 (34-104) Units/L Albumin 3.6 (3.5-5.7) g/dL All other labs normal. - Imaging CT scan - abdomen: report reviewed CT scan - pelvis: report reviewed Additional studies: Abdomen/Pelvis CT 06/02/17 15:30 IMPRESSION: Acute colitis of the descending colon. Incidentally noted mass within the stomach, worrisome for malignancy. Recommend upper endoscopy for further evaluation. D/ / Chris Leslie MD / Chris Leslie MD Interpreting Provider: Chris Leslie MD Consult Discharge Plan - Plan Referrals: Sky Rodriguez DO [Primary Care Provider] - - Attending Attestation For this encounter, I have reviewed the LINESPERSON or PA documentation, treatment plan, and medical decision making; and I have had face to face time with this patient.
[2017-06-03] MEDS: MORPHINE SUL Oral CONC 10 MG/0.5 ML ORAL.SYG SL PRN ×3 (14:13→22:54)
[2017-06-03] MEDS ORDERED: *HR* Midazolam HCl 5 MG/5 ML VIAL IVP ONE (15:49)
[2017-06-03] MEDS ORDERED: *HR* FentaNYL (PF) 100 MCG/2 ML VIAL ONE (15:49)
[2017-06-03] MEDS ORDERED: *HR* Midazolam HCl 2 MG/2 ML VIAL IVP ONE (16:14)
[2017-06-03] MEDS ORDERED: Tetracaine/Benzocaine/Butamben 200MG/SPRAY (100SPY/BOT) MM ONE (16:14)
[2017-06-03 17:24] LABS: Hematocrit 37.5 % (37.5-50.1)
--- NOTE | 2017-06-03 19:03 | Internal Med Progress Note ---
Date of Encounter: 06/03/17 Time of Encounter: 09:35 - Assessment and plan (1) CAD (coronary artery disease) Current Visit: Yes Status: Chronic Assessment and plan: Pt denies chest pain, history of angioplasty and is currently on Plavix. Telemetry Qualifiers: Coronary Disease-Associated Artery/Lesion type: [place] artery [place] vs. transplanted heart: [place] heart Associated angina: without angina Qualified Code(s): I25.10 - Atherosclerotic heart disease of [place] coronary artery without angina pectoris (2) Colitis Current Visit: Yes Status: Acute Assessment and plan: Acute colitis. Leukocytosis. Continue Flagyl and Cipro. Patient will have outpatient colonoscopy in 6-8 weeks with surgery. (3) GI bleeding Current Visit: Yes Status: Acute Assessment and plan: Patient with lower GI bleed, bright red bleeding started him on morning of admission. Hemoglobin is stable currently though decreasing throughout the day. Continue to monitor. Type and screen is completed. Patient will outpatient colonoscopy in 4-6 weeks. 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 There is no stigmata of recent bleeding in the lesser curvature of the stomach. There is a normal duodenal bulb. Qualifiers: GI bleed type/associated pathology: unspecified gastrointestinal hemorrhage type Qualified Code(s): K92.2 - Gastrointestinal hemorrhage, unspecified (4) HTN (hypertension) Current Visit: Yes Status: Chronic Assessment and plan: Chronic. Continue home medications. Qualifiers: Hypertension type: essential hypertension Qualified Code(s): I10 - Essential (primary) hypertension (5) Hyperlipidemia Current Visit: Yes Status: Chronic Assessment and plan: Chronic. Continue home medications. Qualifiers: Hyperlipidemia type: pure hypercholesterolemia Qualified Code(s): E78.00 - Pure hypercholesterolemia, unspecified; E78.0 - Pure hypercholesterolemia (6) Leukocytosis Current Visit: Yes Status: Acute Assessment and plan: Most likely due to colitis. Improving. Continue IV antibiotics, IV fluid hydration, monitor labs. No fever or tachycardia, no signs of SIRS or sepsis. Qualifiers: Leukocytosis type: bandemia Qualified Code(s): D72.825 - Bandemia (7) Mass of stomach Current Visit: Yes Status: Acute Assessment and plan: Plan as above. - Time Spent With Patient less than 15 minutes - Subjective Interval history: Patient was seen and assessed at bedside at 9:35 AM. He reports that 5 AM on day of admission he began having low abdominal cramps, the same ones that He reports having for "years". Approximately 5 hours later he began having diarrhea. Initially the stool was mixed with bright red blood, and eventually became all bright red blood without stool. He reports that his pain is currently controlled with IV normal, later in the day was switched to sublingual Roxanol and he continues to have adequate pain control. He denies any headache, blurred vision, chest pain, shortness of breath. No vomiting or nausea. - Constitutional Vitals: Temp Pulse Resp BP Pulse Ox 99.3 F 84 16 136/77 94 06/03/17 15:52 06/03/17 16:20 06/03/17 16:20 06/03/17 16:20 06/03/17 16:20 General appearance: Present: cooperative, mild distress, A&O X 3, pleasant, answers questions appropriately - Head Head exam: Present: atraumatic, normal inspection, normocephalic - Eye Eye exam: Present: normal appearance, conjuntiva pink, sclera anicteric - Neck Neck exam general surgery: Present: supple, trachea midline. Absent: lymphadenopathy, tenderness - Respiratory Respiratory exam: Present: CTAB. Absent: accessory muscle use, rales, respiratory distress, rhonchi, wheezes - Cardiovascular Cardiovascular exam: Present: RRR, +S1, +S2. Absent: diastolic murmur, gallop, rubs, systolic murmur - GI/Abdominal GI/Abdominal exam: Present: hyperactive bowel sounds, soft, tenderness. Absent : distended, hepatomegaly - Extremities Exam Extremities exam: Present: normal capillary refill, normal inspection, warm, radial pulses palpable and symmetrical. Absent: calf tenderness, cyanotic, pedal edema, tenderness - Neurological Exam Neurological exam: Present: alert, oriented X3, no focal deficits. Absent: facial droop, speech deficit - Skin Skin exam: Present: dry, intact, normal color, warm. Absent: rash Internal Medicine: Result - Labs CBC & Chem 7: 06/03/17 16:40 06/03/17 03:49 Labs: Short CBC 06/03/17 06/03/17 06/03/17 Range/Units 03:49 08:33 10:45 WBC 19.1 H (4.3-11.1) K/mcL Hgb 14.0 D 13.1 13.3 (12.9-16.9) g/dL Hct 39.6 38.4 37.6 (37.5-50.1) % Plt Count 254 (140-400) K/mcL Neutrophils # 16.0 H (1.6-8.9) K/mcL 06/03/17 Range/Units 16:40 WBC (4.3-11.1) K/mcL Hgb 13.0 (12.9-16.9) g/dL Hct 37.5 (37.5-50.1) % Plt Count (140-400) K/mcL Neutrophils # (1.6-8.9) K/mcL BMP 06/03/17 03:49 Sodium 137 Potassium 3.5 Chloride 108 H Carbon Dioxide 22 L BUN 11 Creatinine 0.73 Glucose 142 H Calcium 8.5 L Cardiac Enzymes 06/03/17 06/03/17 Range/Units 03:49 10:45 Troponin I 0.03 < 0.03 (< 0.04) ng/mL Liver Function 06/03/17 Range/Units 03:49 Total Bilirubin 0.8 (0.3-1.0) mg/dL AST 12 L (13-39) Units/L ALT 15 (7-52) Units/L Alkaline Phosphatase 69 (34-104) Units/L Albumin 3.6 (3.5-5.7) g/dL - ABG Interpretation ABG results: PT/INR, D-dimer PT 11.3 Seconds (9.4-12.1) 06/02/17 15:43 Consult Discharge Plan - Plan Referrals: Sky Rodriguez DO [Primary Care Provider] -
[2017-06-03] MEDS: Simethicone 80 MG TAB.CHEW PO PRN (23:00)
[2017-06-04] MEDS: 0.9 % Sodium Chloride 1,000 ML IVC SCH ×2 (00:17→16:47)
[2017-06-04] MEDS: Acetaminophen 325 MG TABLET PO PRN ×3 (02:15→22:27)
[2017-06-04 06:02] LABS: Basophils % 0.2 %; Eosinophils # 0.1 K/mcL (0.0-0.6); Eosinophils % 0.4 %; Hematocrit 36.5 % (37.5-50.1); Hemoglobin 12.6 g/dL (12.9-16.9); Immature Granulocytes % 0.5 % (0-4); Lymphocytes # 2.5 K/mcL (0.6-4.6); Lymphocytes % 15.4 %; Mean Corpuscular HGB Conc 34.5 g/dL (31.6-35.5); Mean Corpuscular Hemoglobin 31.6 pg (28.0-33.3); Mean Corpuscular Volume 91.5 fL (83.0-100.0); Mean Platelet Volume 10.8 fL (9.4-12.4); Monocytes # 1.3 K/mcL (0.0-1.3); Monocytes % 7.9 %; Neutrophils # 12.3 K/mcL (1.6-8.9); Platelet Count 201 K/mcL (140-400); Red Blood Count 3.99 M/mcL (4.19-5.50); Red Cell Distribution Width 13.7 % (11.5-14.5); Segmented Neutrophils % 75.6 %
[2017-06-04 06:07] LABS: BUN/Creatinine Ratio 11 (6-26); Blood Urea Nitrogen 7 mg/dL (8-23); Calcium 8.2 mg/dL (8.6-10.3); Carbon Dioxide 23 mEq/L (23-29); Chloride 110 mEq/L (98-107); Glucose 123 mg/dL (70-105); Osmolality,Calculated 285 (280-300); Potassium 3.6 mEq/L (3.5-5.1); Sodium 138 mEq/L (136-145); eGFR For African Americans > 60 (> 60); eGFR For Non-African Americans > 60 (> 60)
[2017-06-04] MEDS: MetroNIDAZOLE 500 MG/100 ML 500 MG/100 ML BAG IVPB SCH ×2 (08:12→16:44)
[2017-06-04] MEDS: Pantoprazole 40 MG VIAL IVP SCH (08:13)
[2017-06-04] MEDS: Finasteride 5 MG TABLET PO SCH (08:13)
--- NOTE | 2017-06-04 14:53 | Event Note ---
Date of Encounter: 06/04/17 Time of Encounter: 14:51 Patient is s/p EGD with Dr. Coronado and biopsy of gastric mass Pathology pending Plan for outpatient follow-up to discuss results and to discuss interval colonoscopy in 6-8 weeks - Patient Status Disposition: Still a Patient Condition: Good Functional capacity at discharge: independent ambulation Overall status at discharge: patient is progressing back to baseline - Discharge Instructions Follow Up With: Sky Rodriguez DO [Primary Care Provider] - Kyree Coronado DO [Partnered Physician] - 06/15/17 10:50 am (Hospital follow-up ) - Diet and Activity Diet: other (Low fiber diet)
--- NOTE | 2017-06-04 18:26 | Internal Med Progress Note ---
Date of Encounter: 06/04/17 Time of Encounter: 08:30 - Assessment and plan (1) CAD (coronary artery disease) Current Visit: Yes Status: Chronic Assessment and plan: Patient denies chest pain. Continue Plavix after discharge. Continue telemetry. Qualifiers: Coronary Disease-Associated Artery/Lesion type: [place] artery [place] vs. transplanted heart: [place] heart Associated angina: without angina Qualified Code(s): I25.10 - Atherosclerotic heart disease of [place] coronary artery without angina pectoris (2) Colitis Current Visit: Yes Status: Acute Assessment and plan: Acute cholangitis and descending colon. Leukocytosis is improving. Continue Flagyl and Cipro, may de-escalate to by mouth bleeding slowed. Monitor blood loss and hemoglobin. Outpatient colonoscopy in 6-8 weeks with surgery. (3) GI bleeding Current Visit: Yes Status: Acute Assessment and plan: Patient reports no bleeding since yesterday morning, then at episode bright red rectal bleeding today. Hemoglobin continues to trend down. Surgery is aware, cannot proceed with colonoscopy at this time due to inflammation:. Continue to monitor blood loss and hemoglobin. Patient is aware that he is staying to monitor hemoglobin and bleeding. Do not advance diet beyond full liquids until bleeding is controlled. Qualifiers: GI bleed type/associated pathology: unspecified gastrointestinal hemorrhage type Qualified Code(s): K92.2 - Gastrointestinal hemorrhage, unspecified (4) HTN (hypertension) Current Visit: Yes Status: Chronic Assessment and plan: Chronic. Continue home medications. Qualifiers: Hypertension type: essential hypertension Qualified Code(s): I10 - Essential (primary) hypertension (5) Hyperlipidemia Current Visit: Yes Status: Chronic Assessment and plan: Chronic. Continue home medication. Qualifiers: Hyperlipidemia type: pure hypercholesterolemia Qualified Code(s): E78.00 - Pure hypercholesterolemia, unspecified; E78.0 - Pure hypercholesterolemia (6) Leukocytosis Current Visit: Yes Status: Acute Assessment and plan: Improving. Secondary to colitis Continue IV fluids and antibiotics, monitor labs. Patient has no fever or tachycardia no signs of SIRS or sepsis. Qualifiers: Leukocytosis type: bandemia Qualified Code(s): D72.825 - Bandemia (7) Mass of stomach Current Visit: Yes Status: Acute Assessment and plan: EGD on 06/03. Biopsy taken, results pending Follow-up with surgery after discharge. - Time Spent With Patient less than 15 minutes - Subjective Interval history: Patient was seen and assessed at bedside at 0830. He denies any headache, blurred vision, chest pain, shortness of breath. No vomiting or nausea. Patient reports earlier today that he had had no hematochezia since yesterday, states that it return once today. Bleeding is bright red. His aware that we keeping him to monitor his hemoglobin and control his pain. We also discussed outpatient colonoscopy in 6-8 weeks. He reports that he is getting adequate pain control. - Constitutional Vitals: Temp Pulse Resp BP Pulse Ox 99.1 F 64 15 126/74 96 06/04/17 16:45 06/04/17 16:45 06/04/17 16:45 06/04/17 16:45 06/04/17 16:45 General appearance: Present: cooperative, mild distress, A&O X 3, pleasant, no acute distress, answers questions appropriately - Head Head exam: Present: atraumatic, normal inspection, normocephalic - Eye Eye exam: Present: conjuntiva pink, sclera anicteric - Neck Neck exam general surgery: Present: supple, trachea midline. Absent: lymphadenopathy - Respiratory Respiratory exam: Present: CTAB. Absent: accessory muscle use, chest wall tenderness, prolonged expiratory phase, rales, rhonchi, wheezes - Cardiovascular Cardiovascular exam: Present: RRR, +S1, +S2. Absent: diastolic murmur, gallop, rubs, systolic murmur - GI/Abdominal GI/Abdominal exam: Present: normal bowel sounds, soft. Absent: distended, hepatomegaly, rigid, tenderness - Extremities Exam Extremities exam: Present: normal capillary refill, warm, radial pulses palpable and symmetrical. Absent: calf tenderness, cyanotic, pedal edema, tenderness - Neurological Exam Neurological exam: Present: alert, oriented X3, no focal deficits. Absent: facial droop, speech deficit - Skin Skin exam: Present: dry, intact, normal color, warm. Absent: rash Internal Medicine: Result - Labs CBC & Chem 7: 06/04/17 05:31 06/04/17 05:31 Labs: Short CBC 06/04/17 Range/Units 05:31 WBC 16.3 H (4.3-11.1) K/mcL Hgb 12.6 L (12.9-16.9) g/dL Hct 36.5 L (37.5-50.1) % Plt Count 201 (140-400) K/mcL Neutrophils # 12.3 H (1.6-8.9) K/mcL BMP 06/04/17 05:31 Sodium 138 Potassium 3.6 Chloride 110 H Carbon Dioxide 23 BUN 7 L Creatinine 0.64 L Glucose 123 H Calcium 8.2 L - ABG Interpretation ABG results: PT/INR, D-dimer PT 11.3 Seconds (9.4-12.1) 06/02/17 15:43 Consult Discharge Plan - Plan Referrals: Kyree Coronado DO [Partnered Physician] - 06/15/17 10:50 am (Hospital follow-up ) Sky Rodriguez DO [Primary Care Provider] -
[2017-06-04] MEDS: Ondansetron 4 MG/2 ML VIAL IVP PRN (20:13)
[2017-06-05] MEDS: Ondansetron 4 MG/2 ML VIAL IVP PRN
[2017-06-05] MEDS: Simethicone 80 MG TAB.CHEW PO PRN ×3 (03:59→13:45)
[2017-06-05] MEDS: MetroNIDAZOLE 500 MG/100 ML 500 MG/100 ML BAG IVPB SCH ×2 (09:21)
[2017-06-05] MEDS: Finasteride 5 MG TABLET PO SCH (09:22)
[2017-06-05] MEDS: Pantoprazole 40 MG VIAL IVP SCH (09:23)
[2017-06-05] MEDS: MORPHINE SUL Oral CONC 10 MG/0.5 ML ORAL.SYG SL PRN (09:48)
[2017-06-05 09:49] LABS: Basophils # 0.1 K/mcL (0.0-0.2); Basophils % 0.3 %; Eosinophils # 0.1 K/mcL (0.0-0.6); Eosinophils % 0.6 %; Hematocrit 37.2 % (37.5-50.1); Hemoglobin 12.8 g/dL (12.9-16.9); Immature Granulocytes % 0.3 % (0-4); Lymphocytes % 13.4 %; Mean Corpuscular HGB Conc 34.4 g/dL (31.6-35.5); Mean Corpuscular Hemoglobin 31.5 pg (28.0-33.3); Mean Corpuscular Volume 91.6 fL (83.0-100.0); Mean Platelet Volume 10.5 fL (9.4-12.4); Monocytes # 0.9 K/mcL (0.0-1.3); Monocytes % 6.3 %; Neutrophils # 11.6 K/mcL (1.6-8.9); Platelet Count 211 K/mcL (140-400); Red Blood Count 4.06 M/mcL (4.19-5.50); Red Cell Distribution Width 13.4 % (11.5-14.5); Segmented Neutrophils % 79.1 %
[2017-06-05 12:09] VITALS: BP 133/82
[2017-06-05 15:47] LABS: Basophils # 0.1 K/mcL (0.0-0.2); Basophils % 0.3 %; Eosinophils # 0.1 K/mcL (0.0-0.6); Eosinophils % 0.7 %; Hematocrit 37.5 % (37.5-50.1); Immature Granulocytes % 0.5 % (0-4); Immature Platelets 4.8 % (1.1-6.1); Lymphocytes # 2.5 K/mcL (0.6-4.6); Lymphocytes % 17.1 %; Mean Corpuscular HGB Conc 34.7 g/dL (31.6-35.5); Mean Corpuscular Hemoglobin 31.7 pg (28.0-33.3); Mean Corpuscular Volume 91.5 fL (83.0-100.0); Mean Platelet Volume 10.5 fL (9.4-12.4); Monocytes % 7.2 %; Neutrophils # 10.6 K/mcL (1.6-8.9); Platelet Count 230 K/mcL (140-400); Red Cell Distribution Width 13.3 % (11.5-14.5); Segmented Neutrophils % 74.2 %
--- NOTE | 2017-06-05 17:29 | Discharge Summary ---
Orders not resulted at time of discharge: Pending orders 06/03/17 03:49 Culture,Blood,Additional [BC] Routine 06/03/17 16:25 Surgical Pathology [PTH] Routine 06/06/17 04:00 Basic Metabolic Panel AM 0400 Complete Blood Count [HEME] AM 0400 Date of Encounter: 06/05/17 Time of Encounter: 09:15 - Discharge Diagnosis (1) CAD (coronary artery disease) Priority: Primary Status: Chronic Comments: No chest pain. Continue Plavix after follow-up with primary care. Qualifiers: Coronary Disease-Associated Artery/Lesion type: [place] artery [place] vs. transplanted heart: [place] heart Associated angina: without angina Qualified Code(s): I25.10 - Atherosclerotic heart disease of [place] coronary artery without angina pectoris (2) Colitis Priority: Secondary Status: Acute Comments: Patient with acute colitis in the descending colon. Patient had mild leukocytosis that is improving. Patient with GI bleed, as well. Bleeding has slowed and hemoglobin is increasing. Patient will be sent home with prescriptions for Flagyl, Cipro. Patient reports intermittent cramping in the abdomen and states that he has medication at home. Patient will also be given a prescription for gas x for bloating. Patient had KUB today that was negative or any acute findings. Bowel sounds are present. Patient will need to follow-up with primary care, he is also to have a colonoscopy in 6-8 weeks with surgery. (3) GI bleeding Priority: Secondary Status: Acute Comments: Patient reports decrease in bleeding, now just with intermittent clots mixed with formed stool. Hemoglobin has trended back up to within normal limits. Pt is to have a colonoscopy outpatient with surgery in 6-8 weeks. She denied discussed diet, suggested avoiding dairy, hypo-foods, high acid foods. Qualifiers: GI bleed type/associated pathology: unspecified gastrointestinal hemorrhage type Qualified Code(s): K92.2 - Gastrointestinal hemorrhage, unspecified (4) HTN (hypertension) Priority: Secondary Status: Chronic Comments: Chronic. Continue home medications. Qualifiers: Hypertension type: essential hypertension Qualified Code(s): I10 - Essential (primary) hypertension (5) Hyperlipidemia Priority: Secondary Status: Chronic Comments: Chronic. Continue home medications. Qualifiers: Hyperlipidemia type: pure hypercholesterolemia Qualified Code(s): E78.00 - Pure hypercholesterolemia, unspecified; E78.0 - Pure hypercholesterolemia (6) Leukocytosis Priority: Secondary Status: Acute Comments: Improving. Secondary to colitis. Continue by mouth antibiotics and follow up with primary care. She has no fever, no tachycardia, no hypotension, no signs of sirs or sepsis. Qualifiers: Leukocytosis type: bandemia Qualified Code(s): D72.825 - Bandemia (7) Mass of stomach Priority: Secondary Status: Acute Comments: Patient had an EGD on 06/03. Biopsy was taken and the results are pending. Follow-up with surgery after discharge. (8) Anemia due to blood loss Priority: Secondary Status: Acute Comments: Secondary to GI bleed. Patient has been monitored, bleeding has slowed. He reports just clots mixed with solid stool. Hemoglobin has returned to normal limits. Patient might have a long discussion about returning immediately to the emergency department closest to him if bleeding begins again, he become short of breath, weak or pale, diaphoretic. He verbalized understanding. I have given him an outpatient order for CBC in 3 days with results to primary care. Hospital course: Mr. Pritchett is a 62 year old male with PMH of hyperlipidemia, smoking. Presented to the emergency department on day of admission with lower abdominal pain, crampy, rectal bleeding. CT of the abdomen in the ER showed probable mass in the stomach with colitis. Patient has been started on Cipro and Flagyl IV in the ER, hemoglobin again dropping, though he was still stable. EGD by Dr. Marin, colonoscopy outpatient in 6-8 weeks Hemoglobin has returned within normal limits. Patient still has mild leukocytosis secondary to colitis. Patient will follow with Dr. Marin for biopsy results of stomach mass. Labs and vitals are stable and within normal limits. Prescriptions were called to pharmacy, patient is being discharged with an outpatient order for CBC in 3 days with results to primary care. Patient is stable and appropriate for discharge. Discharge discussed with: patient - Time Spent with Patient Total time spent providing and/or coordinating discharge services: Less than 30 minutes - Discharge Medications Prescriptions: Ciprofloxacin [Cipro] 500 mg PO BID #10 tablet metroNIDAZOLE [Flagyl] 500 mg PO TID #15 tablet Simethicone [Gas-X] 80 mg PO TID PRN #90 tab.chew PRN Reason: Dyspepsia Home Medications: Aspirin Enteric Coated [Aspirin EC] 81 mg PO DAILY 06/02/17 [History] Atorvastatin Calcium [Lipitor] 80 mg PO HS 06/02/17 [History] Clopidogrel [Plavix] 75 mg PO DAILY 06/02/17 [History] Cyclobenzaprine [Flexeril] 10 mg PO TID 06/02/17 [History] Finasteride [Proscar] 5 mg PO DAILY 06/02/17 [History] Lisinopril 2.5 mg PO DAILY 06/02/17 [History] Metoprolol [Lopressor] 25 mg PO BID 06/02/17 [History] Nitroglycerin [Nitrostat] 0.4 mg PO Q5M PRN 06/02/17 [History] Tamsulosin [Flomax] 0.4 mg PO DAILY 06/02/17 [History] Ciprofloxacin [Cipro] 500 mg PO BID #10 tablet 06/05/17 [Rx] Simethicone [Gas-X] 80 mg PO TID PRN #90 tab.chew 06/05/17 [Rx] metroNIDAZOLE [Flagyl] 500 mg PO TID #15 tablet 06/05/17 [Rx] Allergies/Adverse Reactions: 3 Allergy/AdvReac Type Severity Reaction Status Date / Time No Known Allergies Allergy Unverified 08/09/15 07:59 Date of admission: 06/02/17 23:50 Primary care physician: Sky Rodriguez DO Consults: 06/03/17 12:58 Consult to Revenue Liaison [CONS] Routine Reason for SW Consult: POA paperwork Discharging clinician: Lor Vasquez Anticipated date of discharge: 06/05/17 - Constitutional Vitals: Temp Pulse Resp BP Pulse Ox 98.5 F 62 16 133/82 96 06/05/17 12:08 06/05/17 12:08 06/05/17 12:08 06/05/17 12:08 06/05/17 12:08 General appearance: Present: cooperative, mild distress, A&O X 3, pleasant, no acute distress, answers questions appropriately - Head Head exam: Present: atraumatic, normal inspection, normocephalic - Eye Eye exam: Present: normal appearance, conjuntiva pink, sclera anicteric - Neck Neck exam general surgery: Present: supple, trachea midline. Absent: lymphadenopathy - Respiratory Respiratory exam: Present: CTAB. Absent: accessory muscle use, rales, rhonchi, wheezes - Cardiovascular Cardiovascular exam: Present: RRR, +S1, +S2. Absent: diastolic murmur, gallop, rubs, systolic murmur - GI/Abdominal GI/Abdominal exam: Present: distended, normal bowel sounds, soft. Absent: hepatomegaly, tenderness - Extremities Exam Extremities exam: Present: normal capillary refill, normal inspection, warm, radial pulses palpable and symmetrical. Absent: calf tenderness, cyanotic, pedal edema, tenderness - Neurological Exam Neurological exam: Present: alert, oriented X3, no focal deficits. Absent: facial droop, speech deficit - Skin Skin exam: Present: dry, intact, normal color, warm. Absent: rash - Patient Status Disposition: Home, Self-Care Condition: Good Functional capacity at discharge: independent ambulation Overall status at discharge: patient is progressing back to baseline - Discharge Instructions Follow Up With: Kyree Coronado DO [Partnered Physician] - 06/15/17 10:50 am (Hospital follow-up ) Sky Rodriguez DO [Primary Care Provider] - Additional Instructions: Please follow up with your primary care provider in the next 7-10 days for a recheck. Please have your hemoglobin drawn in 3 days. Return to the emergency department as needed for any other problems or concerns , or if her symptoms return or worsen. Return to the emergency department immediately if bleeding starts again. Eat a bland, low bulk, dairy free diet until you are better. Follow up with surgery as scheduled for biopsy results and for colonoscopy. Take your normal medications, your new prescriptions have been called into the pharmacy. Return to normal activities as tolerated - Diet and Activity Activity: increase activity as tolerated Diet: other
--- NOTE | 2017-06-06 10:00 | Electrocardiograph Report ---
[place] [id number] Test Date: 2017-06-02 Pat Name: Mauricio Pritchett Department: 104 Room: 3B41 Gender: M Nursing Resident: ANGELA : 1955 Requested By: Rubén Taveras Order Number: [id number] Reading MD: Michael Ruiz DO Measurements Intervals [place] Rate: 90 P: 70 NH: 171 QRS: 35 QRSD: 77 T: 73 QT: 332 QTc: 379 Interpretive Statements SINUS RHYTHM WITH OCCASIONAL SUPRAVENTRICULAR PREMATURE COMPLEXES Electronically Signed On 06-06-2017 9:58:24 EDT by Michael Ruiz DO
== END 2017-06-05 18:00 | disposition home or self-care (01) | DRG 392 ==
LOC: 3BNU 14:31 → EMEROO 14:31 → 3BNU 22:19
PROVIDERS: ADMIT Registered Nurse; ATTEND Registered Nurse
PROC: ENDOEBX (2017-06-03 16:00)

== ENCOUNTER 2019-11-21 16:22 | Inpatient (IN) ==
[2019-11-21] MEDS ORDERED: 0.9 % Sodium Chloride 1,000 ML IVC ONE ×3 (17:28→23:21)
[2019-11-21 18:09] LABS: INR 1.1; Prothrombin Time 12.2 Seconds (9.4-12.1)
[2019-11-21 18:10] LABS: Basophils % 0.4 %; Eosinophils # 0.1 K/mcL (0.0-0.6); Eosinophils % 0.5 %; Hematocrit 32.4 % (37.5-50.1); Hemoglobin 10.8 g/dL (12.9-16.9); Immature Granulocytes % 0.5 % (0-4); Lymphocytes # 1.9 K/mcL (0.6-4.6); Lymphocytes % 16.9 %; Mean Corpuscular HGB Conc 33.3 g/dL (31.6-35.5); Mean Corpuscular Hemoglobin 32.4 pg (28.0-33.3); Mean Corpuscular Volume 97.3 fL (83.0-100.0); Mean Platelet Volume 11.3 fL (9.4-12.4); Monocytes # 0.5 K/mcL (0.0-1.3); Monocytes % 4.4 %; Neutrophils # 8.5 K/mcL (1.6-8.9); Platelet Count 248 K/mcL (140-400); Red Blood Count 3.33 M/mcL (4.19-5.50); Red Cell Distribution Width 13.5 % (11.5-14.5); Segmented Neutrophils % 77.3 %
[2019-11-21 18:31] LABS: BUN/Creatinine Ratio 46 (6-26); Blood Urea Nitrogen 34 mg/dL (8-23); Calcium 8.9 mg/dL (8.6-10.3); Carbon Dioxide 23 mEq/L (23-29); Chloride 109 mEq/L (98-107); Glucose 116 mg/dL (70-105); Osmolality,Calculated 295 (280-300); Sodium 138 mEq/L (136-145); eGFR For African Americans > 60 (> 60); eGFR For Non-African Americans > 60 (> 60)
[2019-11-21] MEDS ORDERED: Naloxone 0.4 MG/ML INJ IVP PRN (20:59)
[2019-11-21] MEDS ORDERED: Pantoprazole 40 MG VIAL IVP SCH (23:45)
[2019-11-21 23:47] LABS: Hematocrit 25.8 % (37.5-50.1); Mean Corpuscular HGB Conc 33.3 g/dL (31.6-35.5); Mean Corpuscular Hemoglobin 32.8 pg (28.0-33.3); Mean Corpuscular Volume 98.5 fL (83.0-100.0); Mean Platelet Volume 10.8 fL (9.4-12.4); Platelet Count 215 K/mcL (140-400); Red Blood Count 2.62 M/mcL (4.19-5.50); Red Cell Distribution Width 13.6 % (11.5-14.5); White Blood Count 7.6 K/mcL (4.3-11.1)
[2019-11-21 23:54] LABS: Hemoglobin 8.6 g/dL (12.9-16.9)
[2019-11-22] MEDS ORDERED: 0.9 % Sodium Chloride 1,000 ML IVC ONE (03:30)
[2019-11-22 05:36] LABS: Hematocrit 21.1 % (37.5-50.1); Mean Corpuscular HGB Conc 32.7 g/dL (31.6-35.5); Mean Corpuscular Hemoglobin 32.5 pg (28.0-33.3); Mean Corpuscular Volume 99.5 fL (83.0-100.0); Mean Platelet Volume 10.9 fL (9.4-12.4); Platelet Count 188 K/mcL (140-400); Red Blood Count 2.12 M/mcL (4.19-5.50); Red Cell Distribution Width 13.5 % (11.5-14.5); White Blood Count 7.7 K/mcL (4.3-11.1)
[2019-11-22 05:37] LABS: Hemoglobin 6.9 g/dL (12.9-16.9)
[2019-11-22 05:54] LABS: Alanine Aminotransferase 7 Units/L (7-52); Albumin 2.7 g/dL (3.5-5.7); Albumin/Globulin Ratio 1.9 (1.1-2.2); Alkaline Phosphatase 34 Units/L (34-104); Aspartate Amino Transferase 7 Units/L (13-39); BUN/Creatinine Ratio 59 (6-26); Bilirubin,Total 0.3 mg/dL (0.3-1.0); Blood Urea Nitrogen 36 mg/dL (8-23); Calcium 7.2 mg/dL (8.6-10.3); Carbon Dioxide 23 mEq/L (23-29); Chloride 115 mEq/L (98-107); Globulin 1.4 g/dL (2.4-3.5); Glucose 102 mg/dL (70-105); Magnesium 1.5 mg/dL (1.6-2.6); Osmolality,Calculated 299 (280-300); Phosphorous 1.9 mg/dL (2.7-4.5); Sodium 140 mEq/L (136-145); Total Protein 4.1 g/dL (6.4-8.9); eGFR For African Americans > 60 (> 60); eGFR For Non-African Americans > 60 (> 60)
[2019-11-22] MEDS ORDERED: 0.9 % Sodium Chloride 250 ML IVC SCH (06:00)
[2019-11-22 09:30] LABS: Hematocrit 24.4 % (37.5-50.1); Hemoglobin 8.1 g/dL (12.9-16.9)
[2019-11-22] MEDS ORDERED: 0.9 % Sodium Chloride 250 ML ONE (09:59)
[2019-11-22] MEDS: Pantoprazole 40 MG in 0.9 % Sodium Chloride Mini Bag 100 ML IVC SCH ×3 (10:16→20:30)
[2019-11-22] MEDS ORDERED: *HR* Propofol 200 MG/20 ML VIAL IVP ONE ×3 (12:18→22:45)
[2019-11-22] MEDS ORDERED: Lidocaine -MPF 2% 2 ML VIAL ONE ×3 (12:19→22:44)
[2019-11-22] MEDS ORDERED: *HR* PHENYLEPHRINE 1,000 MCG/10 ML SYRINGE IVP ONE ×2 (12:55→21:01)
[2019-11-22] MEDS ORDERED: Isovue-370 500 ML BOTTLE IVP ONE (13:55)
[2019-11-22] MEDS ORDERED: 0.9 % Sodium Chloride 1,000 ML IVC SCH (18:45)
[2019-11-22 19:09] LABS: Basophils % 0.5 %; Eosinophils # 0.1 K/mcL (0.0-0.6); Hematocrit 23.4 % (37.5-50.1); Hemoglobin 7.9 g/dL (12.9-16.9); Immature Granulocytes % 0.5 % (0-4); Lymphocytes # 2.7 K/mcL (0.6-4.6); Lymphocytes % 31.9 %; Mean Corpuscular HGB Conc 33.8 g/dL (31.6-35.5); Mean Corpuscular Hemoglobin 31.5 pg (28.0-33.3); Mean Corpuscular Volume 93.2 fL (83.0-100.0); Mean Platelet Volume 11.2 fL (9.4-12.4); Monocytes # 0.4 K/mcL (0.0-1.3); Monocytes % 5.3 %; Neutrophils # 5.1 K/mcL (1.6-8.9); Platelet Count 160 K/mcL (140-400); Red Blood Count 2.51 M/mcL (4.19-5.50); Red Cell Distribution Width 15.2 % (11.5-14.5); Segmented Neutrophils % 60.8 %; White Blood Count 8.4 K/mcL (4.3-11.1)
[2019-11-22] MEDS ORDERED: *HR* Rocuronium Bromide 50 MG/5 ML VIAL ONE (22:44)
[2019-11-22] MEDS ORDERED: Dexamethasone 4 MG/ML VIAL ONE (22:44)
[2019-11-22] MEDS ORDERED: Ondansetron 4 MG/2 ML VIAL ONE (22:44)
[2019-11-22] MEDS ORDERED: *HR* FentaNYL (PF) 100 MCG/2 ML VIAL ONE (22:44)
[2019-11-22] MEDS ORDERED: *HR* Labetalol 20 MG/4 ML SYRINGE IVP PRN (22:52)
[2019-11-22] MEDS ORDERED: Ondansetron 4 MG/2 ML VIAL IVP PRN (22:52)
[2019-11-22] MEDS ORDERED: *HR* Promethazine 25 MG/ML VIAL IVP PRN (22:52)
[2019-11-22] MEDS ORDERED: Acetaminophen IV 1,000 MG/100 ML INFUS..BTL ONE (22:55)
[2019-11-22] MEDS ORDERED: Albumin Human 5% 12.5 GM/250 ML IV.SOLN ONE (22:55)
[2019-11-22] MEDS ORDERED: EPHEDrine 50 MG/ML VIAL ONE (22:56)
[2019-11-22 23:03] LABS: Hematocrit 22.1 % (37.5-50.1); Hemoglobin 7.5 g/dL (12.9-16.9)
[2019-11-22] MEDS ORDERED: ceFAZolin 2,000 MG in Water for inj. (sterile) 20 ML IVP ONE (23:15)
[2019-11-23] MEDS ORDERED: *HR* HYDROMORPHONE 2 MG/ML VIAL ONE ×2 (00:16→06:06)
[2019-11-23] MEDS ORDERED: *HR* Rocuronium Bromide 50 MG/5 ML VIAL ONE (01:17)
[2019-11-23] MEDS ORDERED: Ipratropium/Albuterol Neb 3 ML ONE (02:42)
[2019-11-23] MEDS: Ipratropium/Albuterol Neb 3 ML IH ONE (02:51)
[2019-11-23] MEDS: *HR* HYDROmorphone (PF) 1 MG/ML SYRINGE IVP PRN ×6 (02:52→03:28)
[2019-11-23] MEDS ORDERED: Lidocaine -MPF 2% 2 ML VIAL ONE (04:20)
[2019-11-23] MEDS ORDERED: *HR* Succinylcholine 200 MG/10 ML VIAL IVP ONE (04:20)
[2019-11-23] MEDS ORDERED: *HR* Propofol 200 MG/20 ML VIAL IVP ONE (04:21)
[2019-11-23] MEDS ORDERED: EPHEDrine 50 MG/ML VIAL ONE (05:03)
[2019-11-23] MEDS ORDERED: *HR* FentaNYL (PF) 100 MCG/2 ML VIAL ONE (05:09)
[2019-11-23] MEDS ORDERED: Ipratropium/Albuterol Neb 3 ML IH ONE (06:34)
[2019-11-23] MEDS ORDERED: *HR* HYDROmorphone (PF) 1 MG/ML SYRINGE IVP PRN (06:37)
[2019-11-23] MEDS ORDERED: Furosemide 20 MG/2 ML VIAL IVP PRN (06:44)
[2019-11-23] MEDS ORDERED: Furosemide 20 MG/2 ML VIAL IVP ONE (06:48)
[2019-11-23] MEDS ORDERED: Naloxone 0.4 MG/ML INJ IVP PRN (07:52)
[2019-11-23 08:54] LABS: Basophils % 0.1 %; Hematocrit 25.4 % (37.5-50.1); Hemoglobin 8.7 g/dL (12.9-16.9); Immature Granulocytes % 0.3 % (0-4); Lymphocytes # 0.4 K/mcL (0.6-4.6); Lymphocytes % 2.7 %; Mean Corpuscular HGB Conc 34.3 g/dL (31.6-35.5); Mean Corpuscular Hemoglobin 31.8 pg (28.0-33.3); Mean Corpuscular Volume 92.7 fL (83.0-100.0); Mean Platelet Volume 11.1 fL (9.4-12.4); Monocytes % 6.9 %; Neutrophils # 13.5 K/mcL (1.6-8.9); Platelet Count 169 K/mcL (140-400); Red Blood Count 2.74 M/mcL (4.19-5.50); Red Cell Distribution Width 15.8 % (11.5-14.5)
[2019-11-23] MEDS ORDERED: Lidocaine -MPF 1% 5 ML AMPUL INFILT ONE (08:59)
[2019-11-23 09:09] LABS: BUN/Creatinine Ratio 30 (6-26); Blood Urea Nitrogen 26 mg/dL (8-23); Calcium 7.8 mg/dL (8.6-10.3); Carbon Dioxide 18 mEq/L (23-29); Chloride 113 mEq/L (98-107); Glucose 197 mg/dL (70-105); Magnesium 1.7 mg/dL (1.6-2.6); Osmolality,Calculated 300 (280-300); Phosphorous 2.9 mg/dL (2.7-4.5); Potassium 3.8 mEq/L (3.5-5.1); Sodium 140 mEq/L (136-145); eGFR For African Americans > 60 (> 60); eGFR For Non-African Americans > 60 (> 60)
[2019-11-23] MEDS: 0.9 % Sodium Chloride 1,000 ML IVC SCH ×2 (09:20→17:22)
[2019-11-23] MEDS: Pantoprazole 40 MG in 0.9 % Sodium Chloride Mini Bag 100 ML IVC SCH ×3 (09:21→20:39)
[2019-11-23] MEDS ORDERED: *HR* Metoprolol 5 MG/5 ML VIAL IVP PRN (09:24)
[2019-11-23] MEDS ORDERED: D5% in Water 1,000 ML IVC PRN (09:59)
[2019-11-23] MEDS ORDERED: *HR* Dextrose 50 % in Water (Vial) 50 ML VIAL IVP PRN (09:59)
[2019-11-23] MEDS ORDERED: Dextrose Gel 15 GM/37.5 ML TUBE PO PRN ×2 (09:59)
[2019-11-23 10:01] LABS: Magnesium 1.6 mg/dL (1.6-2.6)
[2019-11-23] MEDS ORDERED: Saliva Stimulant 100ml BOTTLE PO PRN (10:37)
[2019-11-23] MEDS ORDERED: Chloraseptic Spray 177 ML BOTTLE MM PRN (10:37)
[2019-11-23] MEDS: Morphine PCA 30 MG/ 30 ML 30 ML PCA.VIAL IVC PRN (10:48)
[2019-11-23] MEDS ORDERED: D10% in Water 500 ML IVC PRN (11:43)
[2019-11-23] MEDS: Insulin LISPRO 300 UNITS/3 ML VIAL SQ SCH ×4 (12:05→23:01)
[2019-11-23] MEDS: Acetaminophen IV 1,000 MG/100 ML INFUS..BTL IVPB SCH ×3 (12:06→23:41)
[2019-11-23] MEDS ORDERED: Clinimix E 5%-15% SOLUTION 2,000 ML with MVI, adult with vitamin K 10 ML IVC SCH (17:00)
[2019-11-23] MEDS: *HR* Heparin 5,000 UNIT/ML VIAL SQ SCH (17:23)
[2019-11-24] MEDS: 0.9 % Sodium Chloride 1,000 ML IVC SCH ×3 (00:21→17:02)
[2019-11-24 02:14] LABS: BUN/Creatinine Ratio 25 (6-26); Blood Urea Nitrogen 18 mg/dL (8-23); Calcium 7.4 mg/dL (8.6-10.3); Carbon Dioxide 20 mEq/L (23-29); Chloride 114 mEq/L (98-107); Glucose 144 mg/dL (70-105); Magnesium 1.8 mg/dL (1.6-2.6); Osmolality,Calculated 294 (280-300); Phosphorous 1.4 mg/dL (2.7-4.5); Potassium 3.6 mEq/L (3.5-5.1); Sodium 140 mEq/L (136-145); eGFR For African Americans > 60 (> 60); eGFR For Non-African Americans > 60 (> 60)
[2019-11-24] MEDS: Insulin LISPRO 300 UNITS/3 ML VIAL SQ SCH ×5 (02:22→20:46)
[2019-11-24] MEDS: Pantoprazole 40 MG in 0.9 % Sodium Chloride Mini Bag 100 ML IVC SCH ×4 (03:16→19:30)
[2019-11-24] MEDS: Acetaminophen IV 1,000 MG/100 ML INFUS..BTL IVPB SCH ×3 (05:25→17:04)
[2019-11-24] MEDS: *HR* Heparin 5,000 UNIT/ML VIAL SQ SCH (06:30)
[2019-11-24 12:54] LABS: Basophils % 0.4 %; Eosinophils # 0.1 K/mcL (0.0-0.6); Eosinophils % 1.2 %; Hematocrit 20.4 % (37.5-50.1); Immature Granulocytes % 0.8 % (0-4); Lymphocytes # 1.3 K/mcL (0.6-4.6); Lymphocytes % 11.5 %; Mean Corpuscular HGB Conc 32.4 g/dL (31.6-35.5); Mean Corpuscular Hemoglobin 31.4 pg (28.0-33.3); Mean Corpuscular Volume 97.1 fL (83.0-100.0); Mean Platelet Volume 11.6 fL (9.4-12.4); Monocytes # 0.7 K/mcL (0.0-1.3); Monocytes % 6.2 %; Platelet Count 151 K/mcL (140-400); Red Cell Distribution Width 15.9 % (11.5-14.5); Segmented Neutrophils % 79.9 %; White Blood Count 11.3 K/mcL (4.3-11.1)
[2019-11-24 12:55] LABS: Hemoglobin 6.6 g/dL (12.9-16.9)
[2019-11-24] MEDS ORDERED: 0.9 % Sodium Chloride 250 ML IVC SCH (13:30)
[2019-11-24] MEDS: Morphine PCA 30 MG/ 30 ML 30 ML PCA.VIAL IVC PRN (16:55)
[2019-11-24] MEDS ORDERED: Clinimix E 5%-15% SOLUTION 2,000 ML with MVI, adult with vitamin K 10 ML IVC SCH (17:00)
[2019-11-24 18:53] LABS: Hematocrit 22.2 % (37.5-50.1); Hemoglobin 7.9 g/dL (12.9-16.9)
[2019-11-25] MEDS: Insulin LISPRO 300 UNITS/3 ML VIAL SQ SCH ×7 (00:01→23:57)
[2019-11-25] MEDS: Acetaminophen IV 1,000 MG/100 ML INFUS..BTL IVPB SCH ×5 (00:04→23:56)
[2019-11-25 00:47] LABS: Hematocrit 22.1 % (37.5-50.1); Hemoglobin 7.3 g/dL (12.9-16.9)
[2019-11-25] MEDS: 0.9 % Sodium Chloride 1,000 ML IVC SCH ×2 (01:48→12:06)
[2019-11-25] MEDS: Pantoprazole 40 MG in 0.9 % Sodium Chloride Mini Bag 100 ML IVC SCH ×6 (01:50→18:53)
[2019-11-25 05:03] LABS: Basophils % 0.4 %; Eosinophils # 0.3 K/mcL (0.0-0.6); Eosinophils % 3.1 %; Hematocrit 21.5 % (37.5-50.1); Hemoglobin 7.2 g/dL (12.9-16.9); Immature Granulocytes % 0.4 % (0-4); Lymphocytes # 1.3 K/mcL (0.6-4.6); Lymphocytes % 14.3 %; Mean Corpuscular HGB Conc 33.5 g/dL (31.6-35.5); Mean Corpuscular Hemoglobin 31.3 pg (28.0-33.3); Mean Corpuscular Volume 93.5 fL (83.0-100.0); Mean Platelet Volume 11.5 fL (9.4-12.4); Monocytes # 0.6 K/mcL (0.0-1.3); Monocytes % 6.8 %; Neutrophils # 6.9 K/mcL (1.6-8.9); Nucleated Red Blood Cells 0.3 /100 WBC (0); Platelet Count 134 K/mcL (140-400); Red Cell Distribution Width 16.1 % (11.5-14.5); White Blood Count 9.2 K/mcL (4.3-11.1)
[2019-11-25 05:29] LABS: BUN/Creatinine Ratio 15 (6-26); Blood Urea Nitrogen 9 mg/dL (8-23); Calcium 7.4 mg/dL (8.6-10.3); Carbon Dioxide 21 mEq/L (23-29); Chloride 113 mEq/L (98-107); Glucose 113 mg/dL (70-105); Magnesium 1.7 mg/dL (1.6-2.6); Osmolality,Calculated 289 (280-300); Potassium 3.1 mEq/L (3.5-5.1); Sodium 140 mEq/L (136-145); eGFR For African Americans > 60 (> 60); eGFR For Non-African Americans > 60 (> 60)
[2019-11-25] MEDS ORDERED: Potassium Phosphate 44 MEQ in 0.9 % Sodium Chloride 250 ML IVPB ONE (07:41)
[2019-11-25] MEDS ORDERED: 0.9 % Sodium Chloride 250 ML IVC SCH (08:00)
[2019-11-25] MEDS ORDERED: Ringers Solution, Lactated 1,000 ML IVC SCH (08:00)
[2019-11-25 12:01] LABS: Hematocrit 20.3 % (37.5-50.1); Hemoglobin 6.7 g/dL (12.9-16.9)
[2019-11-25 15:07] LABS: BUN/Creatinine Ratio 16 (6-26); Blood Urea Nitrogen 9 mg/dL (8-23); Calcium 7.6 mg/dL (8.6-10.3); Carbon Dioxide 23 mEq/L (23-29); Chloride 111 mEq/L (98-107); Glucose 130 mg/dL (70-105); Osmolality,Calculated 286 (280-300); Potassium 3.2 mEq/L (3.5-5.1); Sodium 138 mEq/L (136-145); eGFR For African Americans > 60 (> 60); eGFR For Non-African Americans > 60 (> 60)
[2019-11-25] MEDS ORDERED: Clinimix E 5%-15% SOLUTION 2,000 ML with MVI, adult with vitamin K 10 ML IVC SCH (17:00)
[2019-11-25 21:32] LABS: Hematocrit 24.4 % (37.5-50.1)
[2019-11-25 21:35] LABS: Hemoglobin 8.5 g/dL (12.9-16.9)
[2019-11-25] MEDS: Morphine PCA 30 MG/ 30 ML 30 ML PCA.VIAL IVC PRN (21:49)
[2019-11-26] MEDS: Pantoprazole 40 MG in 0.9 % Sodium Chloride Mini Bag 100 ML IVC SCH ×4 (04:20→20:29)
[2019-11-26] MEDS: Insulin LISPRO 300 UNITS/3 ML VIAL SQ SCH ×5 (04:24→20:30)
[2019-11-26 04:25] LABS: Basophils % 0.4 %; Eosinophils # 0.4 K/mcL (0.0-0.6); Eosinophils % 4.3 %; Hematocrit 23.9 % (37.5-50.1); Hemoglobin 8.1 g/dL (12.9-16.9); Immature Granulocytes % 0.5 % (0-4); Lymphocytes # 1.1 K/mcL (0.6-4.6); Lymphocytes % 11.3 %; Mean Corpuscular HGB Conc 33.9 g/dL (31.6-35.5); Mean Corpuscular Hemoglobin 31.5 pg (28.0-33.3); Mean Platelet Volume 11.3 fL (9.4-12.4); Monocytes # 0.8 K/mcL (0.0-1.3); Monocytes % 7.5 %; Neutrophils # 7.7 K/mcL (1.6-8.9); Nucleated Red Blood Cells 0.3 /100 WBC (0); Platelet Count 171 K/mcL (140-400); Red Blood Count 2.57 M/mcL (4.19-5.50); Red Cell Distribution Width 15.3 % (11.5-14.5); White Blood Count 10.1 K/mcL (4.3-11.1)
[2019-11-26 04:28] LABS: INR 1.1; Prothrombin Time 12.5 Seconds (9.4-12.1)
[2019-11-26 04:44] LABS: BUN/Creatinine Ratio 15 (6-26); Blood Urea Nitrogen 8 mg/dL (8-23); Carbon Dioxide 22 mEq/L (23-29); Chloride 110 mEq/L (98-107); Potassium 3.2 mEq/L (3.5-5.1); Sodium 137 mEq/L (136-145)
[2019-11-26 04:45] LABS: Calcium 7.5 mg/dL (8.6-10.3); Glucose 116 mg/dL (70-105); Magnesium 1.7 mg/dL (1.6-2.6); Osmolality,Calculated 283 (280-300); Phosphorous 2.7 mg/dL (2.7-4.5); eGFR For African Americans > 60 (> 60); eGFR For Non-African Americans > 60 (> 60)
[2019-11-26] MEDS: Acetaminophen IV 1,000 MG/100 ML INFUS..BTL IVPB SCH ×3 (06:11→18:12)
[2019-11-26] MEDS: Morphine PCA 30 MG/ 30 ML 30 ML PCA.VIAL IVC PRN (12:49)
[2019-11-26] MEDS ORDERED: Clinimix E 5%-15% SOLUTION 2,000 ML with MVI, adult with vitamin K 10 ML IVC SCH (17:00)
[2019-11-27] MEDS: Insulin LISPRO 300 UNITS/3 ML VIAL SQ SCH ×6 (00:07→21:17)
[2019-11-27] MEDS: Acetaminophen IV 1,000 MG/100 ML INFUS..BTL IVPB SCH ×4 (00:10→17:16)
[2019-11-27] MEDS: 0.9 % Sodium Chloride 1,000 ML IVC SCH (00:13)
[2019-11-27] MEDS: Pantoprazole 40 MG in 0.9 % Sodium Chloride Mini Bag 100 ML IVC SCH ×4 (01:20→18:42)
[2019-11-27 04:23] LABS: Basophils % 0.2 %; Eosinophils # 0.3 K/mcL (0.0-0.6); Eosinophils % 2.3 %; Hematocrit 23.5 % (37.5-50.1); Hemoglobin 7.7 g/dL (12.9-16.9); Immature Granulocytes % 0.9 % (0-4); Lymphocytes # 0.7 K/mcL (0.6-4.6); Lymphocytes % 5.9 %; Mean Corpuscular HGB Conc 32.8 g/dL (31.6-35.5); Mean Corpuscular Hemoglobin 30.7 pg (28.0-33.3); Mean Corpuscular Volume 93.6 fL (83.0-100.0); Mean Platelet Volume 11.5 fL (9.4-12.4); Monocytes # 0.9 K/mcL (0.0-1.3); Monocytes % 7.8 %; Neutrophils # 9.3 K/mcL (1.6-8.9); Nucleated Red Blood Cells 0.3 /100 WBC (0); Platelet Count 193 K/mcL (140-400); Red Blood Count 2.51 M/mcL (4.19-5.50); Segmented Neutrophils % 82.9 %; White Blood Count 11.2 K/mcL (4.3-11.1)
[2019-11-27 04:40] LABS: BUN/Creatinine Ratio 15 (6-26); Blood Urea Nitrogen 9 mg/dL (8-23); Calcium 7.3 mg/dL (8.6-10.3); Carbon Dioxide 22 mEq/L (23-29); Chloride 109 mEq/L (98-107); Glucose 123 mg/dL (70-105); Magnesium 1.8 mg/dL (1.6-2.6); Osmolality,Calculated 286 (280-300); Phosphorous 2.6 mg/dL (2.7-4.5); Sodium 138 mEq/L (136-145); eGFR For African Americans > 60 (> 60); eGFR For Non-African Americans > 60 (> 60)
[2019-11-27 10:46] LABS: Bacteria,Urine Few per hpf (None-Few); Bilirubin,Urine Negative (Negative); Blood,Urine Trace (Negative); Clarity,Urine Clear (Clear); Color,Urine Light-Yellow (Yellow); Glucose,Urine (UA) Normal (Normal); Ketones,Urine Negative (Negative); Leukocyte Esterase,Urine Negative (Negative); Mucus,Urine Few per lpf (None-Few); Nitrite,Urine Negative (Negative); Protein,Urine 30 mg/dL (Neg-Trace); Specific Gravity,Urine 1.019 (1.010-1.025); Urobilinogen,Urine Normal (Normal); WBC,Urine 0-3 per hpf (0-3)
[2019-11-27] MEDS: Piperacillin/Tazobactam 3.375 GM in 0.9 % Sodium Chloride Mini Bag 100 ML IVPB SCH ×2 (15:10→21:18)
[2019-11-27 15:37] LABS: Hematocrit 25.5 % (37.5-50.1); Hemoglobin 8.3 g/dL (12.9-16.9)
[2019-11-27] MEDS ORDERED: Piperacillin/Tazobactam 3.375 GM in 0.9 % Sodium Chloride Mini Bag 100 ML IVPB SCH (16:00)
[2019-11-27] MEDS ORDERED: Clinimix E 5%-15% SOLUTION 2,000 ML with MVI, adult with vitamin K 10 ML IVC SCH (17:00)
[2019-11-27] MEDS ORDERED: Potassium Chloride Elixir 20 MEQ/15 ML UDC PO ONE (18:00)
[2019-11-28] MEDS: Insulin LISPRO 300 UNITS/3 ML VIAL SQ SCH ×6 (01:26→21:29)
[2019-11-28] MEDS: Acetaminophen IV 1,000 MG/100 ML INFUS..BTL IVPB SCH ×2 (01:33→06:08)
[2019-11-28] MEDS: Pantoprazole 40 MG in 0.9 % Sodium Chloride Mini Bag 100 ML IVC SCH ×2 (01:43→06:12)
[2019-11-28] MEDS: Piperacillin/Tazobactam 3.375 GM in 0.9 % Sodium Chloride Mini Bag 100 ML IVPB SCH ×3 (06:09→21:28)
[2019-11-28 06:49] LABS: Basophils % 0.2 %; Eosinophils # 0.6 K/mcL (0.0-0.6); Eosinophils % 4.3 %; Hemoglobin 7.8 g/dL (12.9-16.9); Immature Granulocytes % 0.5 % (0-4); Lymphocytes # 1.1 K/mcL (0.6-4.6); Lymphocytes % 8.9 %; Mean Corpuscular HGB Conc 32.5 g/dL (31.6-35.5); Mean Corpuscular Volume 95.2 fL (83.0-100.0); Mean Platelet Volume 11.7 fL (9.4-12.4); Monocytes % 7.9 %; Neutrophils # 9.9 K/mcL (1.6-8.9); Nucleated Red Blood Cells 0.2 /100 WBC (0); Platelet Count 236 K/mcL (140-400); Red Blood Count 2.52 M/mcL (4.19-5.50); Segmented Neutrophils % 78.2 %; White Blood Count 12.7 K/mcL (4.3-11.1)
[2019-11-28 07:09] LABS: BUN/Creatinine Ratio 12 (6-26); Blood Urea Nitrogen 8 mg/dL (8-23); Calcium 7.8 mg/dL (8.6-10.3); Carbon Dioxide 23 mEq/L (23-29); Chloride 111 mEq/L (98-107); Glucose 83 mg/dL (70-105); Osmolality,Calculated 287 (280-300); Phosphorous 2.9 mg/dL (2.7-4.5); Potassium 3.3 mEq/L (3.5-5.1); Sodium 140 mEq/L (136-145); eGFR For African Americans > 60 (> 60); eGFR For Non-African Americans > 60 (> 60)
[2019-11-28] MEDS ORDERED: Acetaminophen 325 MG TABLET PO PRN (10:27)
[2019-11-28 14:39] LABS: Hematocrit 23.8 % (37.5-50.1); Hemoglobin 7.8 g/dL (12.9-16.9)
[2019-11-28] MEDS: GuaiFENesin/Dextromethorphan TABLET PO SCH (21:58)
[2019-11-29] MEDS: Insulin LISPRO 300 UNITS/3 ML VIAL SQ SCH ×3 (00:16→08:40)
[2019-11-29 01:49] LABS: Basophils % 0.2 %; Eosinophils # 0.6 K/mcL (0.0-0.6); Eosinophils % 5.1 %; Hematocrit 24.4 % (37.5-50.1); Hemoglobin 7.8 g/dL (12.9-16.9); Immature Granulocytes % 0.8 % (0-4); Lymphocytes # 1.3 K/mcL (0.6-4.6); Lymphocytes % 11.6 %; Mean Corpuscular Volume 96.8 fL (83.0-100.0); Mean Platelet Volume 11.5 fL (9.4-12.4); Monocytes % 9.2 %; Platelet Count 304 K/mcL (140-400); Red Blood Count 2.52 M/mcL (4.19-5.50); Segmented Neutrophils % 73.1 %; White Blood Count 10.9 K/mcL (4.3-11.1)
[2019-11-29 02:11] LABS: BUN/Creatinine Ratio 10 (6-26); Blood Urea Nitrogen 7 mg/dL (8-23); Carbon Dioxide 24 mEq/L (23-29); Chloride 110 mEq/L (98-107); Glucose 95 mg/dL (70-105); Osmolality,Calculated 290 (280-300); Phosphorous 3.4 mg/dL (2.7-4.5); Potassium 3.5 mEq/L (3.5-5.1); Sodium 141 mEq/L (136-145); eGFR For African Americans > 60 (> 60); eGFR For Non-African Americans > 60 (> 60)
[2019-11-29] MEDS: Piperacillin/Tazobactam 3.375 GM in 0.9 % Sodium Chloride Mini Bag 100 ML IVPB SCH (06:17)
[2019-11-29 06:55] VITALS: BP 132/61
[2019-11-29] MEDS: GuaiFENesin/Dextromethorphan TABLET PO SCH (09:03)
== END 2019-11-29 10:46 | disposition home or self-care (01) | DRG 326 ==
LOC: EMEROOARM 16:22 → 3BNU 16:22 → SUATTDRO 19:34 → 3BNU 19:51 → SUATTDRO 11-22 10:16 → 3ANU 11-23
PROVIDERS: ADMIT Internal Medicine; ATTEND Family Medicine

== ENCOUNTER 2021-02-15 14:21 | Inpatient (IN) ==
[2021-02-15] MEDS ORDERED: Ondansetron 4 MG/2 ML VIAL IVP ONE (14:31)
[2021-02-15] MEDS ORDERED: Isovue-370 500 ML BOTTLE IVP ONE (14:31)
[2021-02-15] MEDS ORDERED: 0.9 % Sodium Chloride 1,000 ML IVC ONE (14:31)
[2021-02-15] MEDS ORDERED: Ketorolac 30 MG/ML VIAL IVP ONE (14:31)
[2021-02-15 14:47] LABS: Bilirubin,Urine Negative (Negative); Blood,Urine Negative (Negative); Clarity,Urine Clear (Clear); Color,Urine Light-Yellow (Yellow); Glucose,Urine (UA) Normal (Normal); Ketones,Urine Negative (Negative); Leukocyte Esterase,Urine Negative (Negative); Nitrite,Urine Negative (Negative); PH,Urine 6.5 pH Units (5.0-8.0); Protein,Urine Negative (Neg-Trace); Urobilinogen,Urine Normal (Normal)
[2021-02-15 15:06] LABS: Hematocrit 47.9 % (37.5-50.1); Hemoglobin 16.2 g/dL (12.9-16.9); Mean Corpuscular HGB Conc 33.8 g/dL (31.6-35.5); Mean Corpuscular Volume 91.8 fL (83.0-100.0); Mean Platelet Volume 10.5 fL (9.4-12.4); Platelet Count 292 K/mcL (140-400); Red Blood Count 5.22 M/mcL (4.19-5.50); Red Cell Distribution Width 16.3 % (11.5-14.5); White Blood Count 16.2 K/mcL (4.3-11.1)
[2021-02-15 15:07] LABS: Basophils # 0.1 K/mcL (0.0-0.2); Basophils % 0.3 %; Eosinophils % 0.2 %; Immature Granulocytes % 0.5 % (0-4); Lymphocytes # 2.1 K/mcL (0.6-4.6); Monocytes # 1.1 K/mcL (0.0-1.3); Neutrophils # 12.8 K/mcL (1.6-8.9)
[2021-02-15 15:15] LABS: INR 1.1; Prothrombin Time 11.7 Seconds (9.4-12.1)
[2021-02-15 15:18] LABS: Activated Partial Thrombo Time 31.5 Seconds (26.0-36.0)
[2021-02-15 15:21] LABS: Alanine Aminotransferase 9 Units/L (7-52); Albumin 4.3 g/dL (3.5-5.7); Albumin/Globulin Ratio 1.5 (1.1-2.2); Alkaline Phosphatase 71 Units/L (34-104); Amylase 45 Units/L (29-103); Aspartate Amino Transferase 10 Units/L (13-39); BUN/Creatinine Ratio 13 (6-26); Bilirubin,Direct 0.1 mg/dL (0.0-0.2); Bilirubin,Indirect 0.4 mg/dL (0.0-1.0); Bilirubin,Total 0.5 mg/dL (0.3-1.0); Blood Urea Nitrogen 12 mg/dL (8-23); Calcium 10.9 mg/dL (8.6-10.3); Carbon Dioxide 28 mEq/L (23-29); Chloride 101 mEq/L (98-107); Globulin 2.8 g/dL (2.4-3.5); Glucose 129 mg/dL (70-105); Lipase 17 Units/L (11-82); Osmolality,Calculated 285 (280-300); Potassium 3.6 mEq/L (3.5-5.1); Sodium 137 mEq/L (136-145); Total Protein 7.1 g/dL (6.4-8.9); eGFR For African Americans > 60 (> 60); eGFR For Non-African Americans > 60 (> 60)
[2021-02-15] MEDS ORDERED: Pantoprazole 80 MG in 0.9 % Sodium Chloride 50 ML IVPB ONE (16:58)
[2021-02-15] MEDS: Pantoprazole 40 MG in 0.9 % Sodium Chloride Mini Bag 100 ML IVC SCH ×2 (17:48→23:16)
[2021-02-15] MEDS ORDERED: Naloxone 0.4 MG/ML INJ IVP PRN (18:19)
[2021-02-15] MEDS ORDERED: Ondansetron 4 MG/2 ML VIAL IVP PRN (18:19)
[2021-02-15] MEDS ORDERED: Morphine Sulfate 2 MG/ML SYRINGE IVP PRN (18:20)
[2021-02-15] MEDS ORDERED: 0.9 % Sodium Chloride 1,000 ML IVC SCH (19:00)
[2021-02-16 01:52] LABS: Basophils # 0.1 K/mcL (0.0-0.2); Basophils % 0.6 %; Eosinophils # 0.1 K/mcL (0.0-0.6); Eosinophils % 1.1 %; Hematocrit 40.4 % (37.5-50.1); Hemoglobin 13.9 g/dL (12.9-16.9); Immature Granulocytes % 0.4 % (0-4); Lymphocytes # 2.6 K/mcL (0.6-4.6); Lymphocytes % 30.8 %; Mean Corpuscular HGB Conc 34.4 g/dL (31.6-35.5); Mean Corpuscular Volume 92.9 fL (83.0-100.0); Mean Platelet Volume 10.8 fL (9.4-12.4); Monocytes # 0.6 K/mcL (0.0-1.3); Monocytes % 7.2 %; Platelet Count 244 K/mcL (140-400); Red Blood Count 4.35 M/mcL (4.19-5.50); Red Cell Distribution Width 16.5 % (11.5-14.5); Segmented Neutrophils % 59.9 %; White Blood Count 8.3 K/mcL (4.3-11.1)
[2021-02-16 02:13] LABS: BUN/Creatinine Ratio 18 (6-26); Blood Urea Nitrogen 16 mg/dL (8-23); Calcium 9.3 mg/dL (8.6-10.3); Carbon Dioxide 26 mEq/L (23-29); Chloride 107 mEq/L (98-107); Glucose 99 mg/dL (70-105); Osmolality,Calculated 293 (280-300); Potassium 3.7 mEq/L (3.5-5.1); Sodium 141 mEq/L (136-145); eGFR For African Americans > 60 (> 60); eGFR For Non-African Americans > 60 (> 60)
[2021-02-16] MEDS: Pantoprazole 40 MG in 0.9 % Sodium Chloride Mini Bag 100 ML IVC SCH ×2 (03:53→08:27)
[2021-02-16] MEDS ORDERED: Acetaminophen 325 MG TABLET PO PRN (07:37)
[2021-02-16] MEDS: Finasteride 5 MG TABLET PO SCH (09:36)
[2021-02-16] MEDS ORDERED: *HR* OxyCODONE Oral Soln 5 MG/5 ML UD.LIQ PO PRN (12:14)
[2021-02-17 02:36] LABS: Hematocrit 37.4 % (37.5-50.1); Mean Corpuscular HGB Conc 32.9 g/dL (31.6-35.5); Mean Corpuscular Hemoglobin 30.6 pg (28.0-33.3); Mean Platelet Volume 10.5 fL (9.4-12.4); Platelet Count 214 K/mcL (140-400); Red Blood Count 4.02 M/mcL (4.19-5.50); Red Cell Distribution Width 16.2 % (11.5-14.5); White Blood Count 6.2 K/mcL (4.3-11.1)
[2021-02-17 02:38] LABS: Hemoglobin 12.3 g/dL (12.9-16.9)
[2021-02-17 02:53] LABS: BUN/Creatinine Ratio 17 (6-26); Blood Urea Nitrogen 15 mg/dL (8-23); Calcium 8.3 mg/dL (8.6-10.3); Carbon Dioxide 26 mEq/L (23-29); Chloride 106 mEq/L (98-107); Glucose 97 mg/dL (70-105); Magnesium 1.7 mg/dL (1.6-2.6); Osmolality,Calculated 291 (280-300); Phosphorous 2.9 mg/dL (2.7-4.5); Potassium 3.7 mEq/L (3.5-5.1); Sodium 140 mEq/L (136-145); eGFR For African Americans > 60 (> 60); eGFR For Non-African Americans > 60 (> 60)
[2021-02-17] MEDS: Finasteride 5 MG TABLET PO SCH (08:46)
[2021-02-17] MEDS ORDERED: *HR* Propofol 200 MG/20 ML VIAL IVP ONE (11:45)
[2021-02-17] MEDS ORDERED: Lidocaine -MPF 2% 5 ML VIAL ONE ×2 (11:45→11:54)
[2021-02-17 12:01] VITALS: TEMP 97.6; O2SAT 96
[2021-02-17 14:19] VITALS: BP 123/57; PULSE 53
== END 2021-02-17 14:31 | disposition home or self-care (01) | DRG 382 ==
LOC: EMEROOARM 14:21 → 3ANU 14:21 → SUATTDRO 17:49 → 3ANU 18:37
PROVIDERS: ADMIT Student in an Organized Health Care Education/Training Program; ATTEND Internal Medicine

== ENCOUNTER 2021-03-14 09:05 | Inpatient (IN) ==
[~2021-03-14 09:05] MED LIST: Acetaminophen IV 1,000 MG/100 ML BAG IVPB ONE; Ondansetron 4 MG/2 ML VIAL IVP PRN
[2021-03-14] MEDS ORDERED: CefOXitin 1,000 MG VIAL ONE (09:16)
[2021-03-14] MEDS ORDERED: *HR* OxyCODONE Immed Rel 5 MG TABLET PO ONE (09:29)
[2021-03-14] MEDS ORDERED: cefOXitin 2,000 MG in Water for inj. (sterile) 10 ML IVP ONE (09:44)
[2021-03-14] MEDS ORDERED: *HR* FentaNYL (PF) 100 MCG/2 ML VIAL ONE ×2 (09:45→12:06)
[2021-03-14] MEDS ORDERED: *HR* Rocuronium Bromide 50 MG/5 ML VIAL ONE ×2 (09:45→13:37)
[2021-03-14] MEDS ORDERED: Ondansetron 4 MG/2 ML VIAL ONE ×2 (09:45→11:53)
[2021-03-14] MEDS ORDERED: Lidocaine -MPF 4% 5 ML AMPUL ONE (09:45)
[2021-03-14] MEDS ORDERED: *HR* Propofol 200 MG/20 ML VIAL IVP ONE (09:45)
[2021-03-14] MEDS ORDERED: *HR* Midazolam HCl 2 MG/2 ML VIAL ONE (09:45)
[2021-03-14] MEDS ORDERED: Lidocaine -MPF 2% 5 ML VIAL ONE (09:45)
[2021-03-14] MEDS ORDERED: Ringers Solution, Lactated 1,000 ML IVC SCH (09:45)
[2021-03-14] MEDS ORDERED: Acetaminophen IV 1,000 MG/100 ML BAG IVPB ONE (09:50)
[2021-03-14] MEDS ORDERED: Famotidine 20 MG/2 ML VIAL IVP ONE (09:50)
[2021-03-14] MEDS ORDERED: *HR* Magnesium Sulfate 1 GM/2 ML VIAL ONE (10:37)
[2021-03-14] MEDS ORDERED: *HR* HYDROMORPHONE 2 MG/ML VIAL ONE (13:54)
[2021-03-14] MEDS ORDERED: Sugammadex Sodium 200 MG/2 ML VIAL IV ONE (14:34)
[2021-03-14] MEDS: *HR* HYDROmorphone PF 0.5 MG/0.5 ML SYRINGE IVP PRN ×2 (15:06→15:15)
[2021-03-14] MEDS ORDERED: *HR* HYDROmorphone 20 MG/20 ML PCA IVC PRN (16:22)
[2021-03-14] MEDS ORDERED: Naloxone 0.4 MG/ML INJ IVP PRN (16:22)
[2021-03-14] MEDS: 0.9 % Sodium Chloride 1,000 ML IVC SCH (18:54)
[2021-03-14] MEDS: Ketorolac 30 MG/ML VIAL IVP SCH (18:56)
[2021-03-14] MEDS: *HR* Metoprolol 5 MG/5 ML VIAL IVP SCH ×2 (18:57→23:57)
[2021-03-14] MEDS: cefOXitin 1,000 MG in Water for inj. (sterile) 10 ML IVP SCH (18:58)
[2021-03-14] MEDS: Acetaminophen IV 1,000 MG/100 ML BAG IVPB SCH (20:58)
[2021-03-15] MEDS: cefOXitin 1,000 MG in Water for inj. (sterile) 10 ML IVP SCH ×3 (00:06→17:17)
[2021-03-15] MEDS: Ketorolac 30 MG/ML VIAL IVP SCH ×5 (00:07→23:53)
[2021-03-15] MEDS: Acetaminophen IV 1,000 MG/100 ML BAG IVPB SCH ×5 (00:07→23:57)
[2021-03-15] MEDS: 0.9 % Sodium Chloride 1,000 ML IVC SCH ×3 (03:36→17:19)
[2021-03-15] MEDS: *HR* Metoprolol 5 MG/5 ML VIAL IVP SCH ×4 (05:09→23:50)
[2021-03-15 05:26] LABS: Basophils % 0.4 %; Hematocrit 32.2 % (37.5-50.1); Hemoglobin 10.8 g/dL (12.9-16.9); Immature Granulocytes % 0.1 % (0-4); Lymphocytes % 13.7 %; Mean Corpuscular HGB Conc 33.5 g/dL (31.6-35.5); Mean Corpuscular Hemoglobin 32.3 pg (28.0-33.3); Mean Corpuscular Volume 96.4 fL (83.0-100.0); Mean Platelet Volume 10.3 fL (9.4-12.4); Monocytes # 0.3 K/mcL (0.0-1.3); Monocytes % 4.1 %; Platelet Count 344 K/mcL (140-400); Red Blood Count 3.34 M/mcL (4.19-5.50); Red Cell Distribution Width 15.5 % (11.5-14.5); Segmented Neutrophils % 81.7 %; White Blood Count 7.5 K/mcL (4.3-11.1)
[2021-03-15 05:27] LABS: Neutrophils # 6.1 K/mcL (1.6-8.9)
[2021-03-15 05:34] LABS: BUN/Creatinine Ratio 21 (6-26); Blood Urea Nitrogen 21 mg/dL (8-23); Calcium 7.9 mg/dL (8.6-10.3); Carbon Dioxide 23 mEq/L (23-29); Chloride 106 mEq/L (98-107); Glucose 126 mg/dL (70-105); Osmolality,Calculated 285 (280-300); Potassium 4.2 mEq/L (3.5-5.1); Sodium 135 mEq/L (136-145); eGFR For African Americans > 60 (> 60); eGFR For Non-African Americans > 60 (> 60)
[2021-03-15] MEDS: Pantoprazole 40 MG VIAL IVP SCH (08:38)
[2021-03-15] MEDS ORDERED: Chloraseptic Spray 177 ML BOTTLE MM PRN (16:49)
[2021-03-15] MEDS: *HR* Heparin 5,000 UNIT/ML VIAL SQ SCH ×2 (17:17→17:24)
[2021-03-16] MEDS: cefOXitin 1,000 MG in Water for inj. (sterile) 10 ML IVP SCH ×3 (00:17→17:52)
[2021-03-16] MEDS: 0.9 % Sodium Chloride 1,000 ML IVC SCH ×3 (00:20→16:22)
[2021-03-16] MEDS: Acetaminophen IV 1,000 MG/100 ML BAG IVPB SCH ×4 (05:18→23:30)
[2021-03-16] MEDS: Ketorolac 30 MG/ML VIAL IVP SCH ×4 (05:19→23:30)
[2021-03-16] MEDS: *HR* Metoprolol 5 MG/5 ML VIAL IVP SCH ×4 (05:20→23:30)
[2021-03-16] MEDS: *HR* Heparin 5,000 UNIT/ML VIAL SQ SCH ×2 (05:25→18:12)
[2021-03-16] MEDS: Pantoprazole 40 MG VIAL IVP SCH (08:34)
[2021-03-17] MEDS: 0.9 % Sodium Chloride 1,000 ML IVC SCH ×3 (01:14→23:32)
[2021-03-17] MEDS: cefOXitin 1,000 MG in Water for inj. (sterile) 10 ML IVP SCH ×3 (01:15→16:04)
[2021-03-17 06:06] LABS: Basophils % 0.2 %; Eosinophils # 0.3 K/mcL (0.0-0.6); Eosinophils % 2.8 %; Hematocrit 28.5 % (37.5-50.1); Hemoglobin 9.3 g/dL (12.9-16.9); Immature Granulocytes % 0.8 % (0-4); Lymphocytes # 0.5 K/mcL (0.6-4.6); Lymphocytes % 5.5 %; Mean Corpuscular HGB Conc 32.6 g/dL (31.6-35.5); Mean Corpuscular Hemoglobin 32.4 pg (28.0-33.3); Mean Corpuscular Volume 99.3 fL (83.0-100.0); Mean Platelet Volume 10.4 fL (9.4-12.4); Monocytes # 0.4 K/mcL (0.0-1.3); Monocytes % 4.3 %; Platelet Count 286 K/mcL (140-400); Red Blood Count 2.87 M/mcL (4.19-5.50); Red Cell Distribution Width 15.9 % (11.5-14.5); Segmented Neutrophils % 86.4 %; White Blood Count 9.8 K/mcL (4.3-11.1)
[2021-03-17 06:08] LABS: Neutrophils # 8.5 K/mcL (1.6-8.9)
[2021-03-17] MEDS: Acetaminophen IV 1,000 MG/100 ML BAG IVPB SCH ×4 (06:11→23:33)
[2021-03-17] MEDS: Ketorolac 30 MG/ML VIAL IVP SCH ×3 (06:11→18:05)
[2021-03-17] MEDS: *HR* Heparin 5,000 UNIT/ML VIAL SQ SCH ×2 (06:11→18:06)
[2021-03-17] MEDS: *HR* Metoprolol 5 MG/5 ML VIAL IVP SCH ×4 (06:11→23:34)
[2021-03-17 06:25] LABS: BUN/Creatinine Ratio 30 (6-26); Blood Urea Nitrogen 19 mg/dL (8-23); Calcium 7.7 mg/dL (8.6-10.3); Carbon Dioxide 14 mEq/L (23-29); Chloride 112 mEq/L (98-107); Glucose 74 mg/dL (70-105); Osmolality,Calculated 289 (280-300); Sodium 139 mEq/L (136-145); eGFR For African Americans > 60 (> 60); eGFR For Non-African Americans > 60 (> 60)
[2021-03-17] MEDS: Pantoprazole 40 MG VIAL IVP SCH (09:54)
[2021-03-18] MEDS: 0.9 % Sodium Chloride 1,000 ML IVC SCH ×2 (03:43→13:36)
[2021-03-18] MEDS: *HR* Metoprolol 5 MG/5 ML VIAL IVP SCH ×2 (05:26→11:27)
[2021-03-18] MEDS: *HR* Heparin 5,000 UNIT/ML VIAL SQ SCH ×2 (05:26→18:34)
[2021-03-18] MEDS: Acetaminophen IV 1,000 MG/100 ML BAG IVPB SCH ×3 (05:27→18:34)
[2021-03-18] MEDS: cefOXitin 1,000 MG in Water for inj. (sterile) 10 ML IVP SCH ×3 (08:51→18:37)
[2021-03-18] MEDS: Pantoprazole 40 MG VIAL IVP SCH (08:52)
[2021-03-18] MEDS: Sucralfate 1 GM TABLET PO SCH ×3 (11:27→20:40)
[2021-03-18] MEDS: Cyanocobalamin (B-12) 1,000 MCG TABLET PO SCH (11:27)
[2021-03-18] MEDS: lisinopriL 5 MG TABLET PO SCH (11:27)
[2021-03-18] MEDS: Finasteride 5 MG TABLET PO SCH (11:27)
[2021-03-18] MEDS ORDERED: Water for inj. (sterile) 10 ML ONE (18:47)
[2021-03-19] MEDS: Acetaminophen IV 1,000 MG/100 ML BAG IVPB SCH ×3 (00:22→12:38)
[2021-03-19] MEDS: cefOXitin 1,000 MG in Water for inj. (sterile) 10 ML IVP SCH ×2 (00:22→07:32)
[2021-03-19] MEDS: *HR* Heparin 5,000 UNIT/ML VIAL SQ SCH (05:35)
[2021-03-19] MEDS: Sucralfate 1 GM TABLET PO SCH ×2 (07:31→12:37)
[2021-03-19] MEDS: *HR* OxyCODONE Immed Rel 5 MG TABLET PO PRN ×2 (07:32→13:42)
[2021-03-19] MEDS: Finasteride 5 MG TABLET PO SCH (07:32)
[2021-03-19] MEDS: lisinopriL 5 MG TABLET PO SCH (07:32)
[2021-03-19] MEDS: Cyanocobalamin (B-12) 1,000 MCG TABLET PO SCH (07:32)
[2021-03-19] MEDS: Pantoprazole 40 MG VIAL IVP SCH (07:33)
[2021-03-19 10:14] VITALS: BP 131/71; PULSE 76; TEMP 98.4; O2SAT 94
== END 2021-03-19 13:53 | disposition home or self-care (01) | DRG 328 ==
LOC: SAMDAY 09:05 → 3ANU 16:18
PROVIDERS: ADMIT Surgery; ATTEND Surgery

== ENCOUNTER 2021-03-20 10:24 | Inpatient (IN) ==
[2021-03-20] MEDS ORDERED: Isovue-370 500 ML BOTTLE IVP ONE (11:07)
[2021-03-20 11:36] LABS: Hematocrit 27.3 % (37.5-50.1); Mean Corpuscular Hemoglobin 30.9 pg (28.0-33.3); Mean Corpuscular Volume 93.8 fL (83.0-100.0); Platelet Count 398 K/mcL (140-400); Red Blood Count 2.91 M/mcL (4.19-5.50); Red Cell Distribution Width 15.2 % (11.5-14.5); White Blood Count 9.2 K/mcL (4.3-11.1)
[2021-03-20 12:38] LABS: Alanine Aminotransferase 11 Units/L (7-52); Albumin 2.5 g/dL (3.5-5.7); Albumin/Globulin Ratio 0.9 (1.1-2.2); Alkaline Phosphatase 64 Units/L (34-104); Aspartate Amino Transferase 15 Units/L (13-39); BUN/Creatinine Ratio 18 (6-26); Bilirubin,Direct 0.1 mg/dL (0.0-0.2); Bilirubin,Indirect 0.3 mg/dL (0.0-1.0); Bilirubin,Total 0.4 mg/dL (0.3-1.0); Blood Urea Nitrogen 10 mg/dL (8-23); Calcium 8.1 mg/dL (8.6-10.3); Carbon Dioxide 25 mEq/L (23-29); Chloride 104 mEq/L (98-107); Globulin 2.7 g/dL (2.4-3.5); Glucose 118 mg/dL (70-105); Lipase 4 Units/L (11-82); Osmolality,Calculated 288 (280-300); Potassium 3.4 mEq/L (3.5-5.1); Sodium 139 mEq/L (136-145); Total Protein 5.2 g/dL (6.4-8.9); eGFR For African Americans > 60 (> 60); eGFR For Non-African Americans > 60 (> 60)
[2021-03-20] MEDS ORDERED: Piperacillin/Tazobactam 3.375 GM in 0.9 % Sodium Chloride Mini Bag 100 ML IVPB ONE (14:50)
[2021-03-20] MEDS ORDERED: Acetaminophen IV 1,000 MG/100 ML BAG IVPB ONE ×2 (15:10→15:18)
[2021-03-20] MEDS ORDERED: Famotidine 20 MG/2 ML VIAL IVP ONE (15:10)
[2021-03-20] MEDS ORDERED: Ketamine HCL *QUVA* 50mg (1mL) SYRINGE ONE (15:18)
[2021-03-20] MEDS ORDERED: Famotidine 20 MG/2 ML VIAL ONE (15:18)
[2021-03-20] MEDS ORDERED: Albumin Human 5% 12.5 GM/250 ML IV.SOLN ONE (15:18)
[2021-03-20] MEDS ORDERED: Naloxone 0.4 MG/ML INJ IVP PRN ×2 (15:24→18:41)
[2021-03-20] MEDS ORDERED: Ondansetron 4 MG/2 ML VIAL IVP PRN ×4 (15:24→18:41)
[2021-03-20] MEDS ORDERED: Ringers Solution, Lactated 1,000 ML IVC SCH ×2 (15:30→18:41)
[2021-03-20] MEDS ORDERED: *HR* Rocuronium Bromide 50 MG/5 ML VIAL ONE (15:30)
[2021-03-20] MEDS ORDERED: *HR* FentaNYL (PF) 100 MCG/2 ML VIAL ONE ×3 (15:30→17:19)
[2021-03-20] MEDS ORDERED: Ondansetron 4 MG/2 ML VIAL ONE (15:30)
[2021-03-20] MEDS ORDERED: *HR* Midazolam HCl 2 MG/2 ML VIAL ONE (15:30)
[2021-03-20] MEDS ORDERED: Lidocaine -MPF 2% 5 ML VIAL ONE (15:30)
[2021-03-20] MEDS ORDERED: *HR* Propofol 200 MG/20 ML VIAL IVP ONE (15:30)
[2021-03-20] MEDS ORDERED: Morphine Sulfate 2 MG/ML SYRINGE IVP PRN (15:50)
[2021-03-20] MEDS ORDERED: *HR* HYDROmorphone PF 0.5 MG/0.5 ML SYRINGE IVP PRN ×2 (15:55→18:41)
[2021-03-20] MEDS ORDERED: Piperacillin/Tazobactam 3.375 GM in 0.9 % Sodium Chloride Mini Bag 100 ML IVPB SCH (16:00)
[2021-03-20] MEDS ORDERED: *HR* Magnesium Sulfate 1 GM/2 ML VIAL ONE (16:37)
[2021-03-20] MEDS ORDERED: Sugammadex Sodium 200 MG/2 ML VIAL IV ONE (17:09)
[2021-03-20] MEDS: Pantoprazole 40 MG VIAL IVP SCH (20:16)
[2021-03-20] MEDS: Morphine Sulfate 2 MG/ML SYRINGE IVP PRN (20:17)
[2021-03-20] MEDS ORDERED: Pantoprazole 40 MG VIAL IVP SCH (21:00)
[2021-03-21] MEDS ORDERED: Piperacillin/Tazobactam 3.375 GM in 0.9 % Sodium Chloride Mini Bag 100 ML IVPB SCH
[2021-03-21] MEDS: Piperacillin/Tazobactam 3.375 GM in 0.9 % Sodium Chloride Mini Bag 100 ML IVPB SCH ×4 (00:52→23:28)
[2021-03-21 01:47] LABS: Hematocrit 27.3 % (37.5-50.1); Hemoglobin 9.4 g/dL (12.9-16.9); Mean Corpuscular HGB Conc 34.4 g/dL (31.6-35.5); Mean Corpuscular Hemoglobin 32.5 pg (28.0-33.3); Mean Corpuscular Volume 94.5 fL (83.0-100.0); Mean Platelet Volume 10.5 fL (9.4-12.4); Platelet Count 482 K/mcL (140-400); Red Blood Count 2.89 M/mcL (4.19-5.50); Red Cell Distribution Width 15.4 % (11.5-14.5)
[2021-03-21 02:16] LABS: BUN/Creatinine Ratio 16 (6-26); Blood Urea Nitrogen 9 mg/dL (8-23); Calcium 7.6 mg/dL (8.6-10.3); Carbon Dioxide 22 mEq/L (23-29); Chloride 104 mEq/L (98-107); Glucose 133 mg/dL (70-105); Osmolality,Calculated 287 (280-300); Potassium 4.3 mEq/L (3.5-5.1); Sodium 138 mEq/L (136-145); eGFR For African Americans > 60 (> 60); eGFR For Non-African Americans > 60 (> 60)
[2021-03-21] MEDS: Morphine Sulfate 2 MG/ML SYRINGE IVP PRN ×2 (02:20→08:38)
[2021-03-21] MEDS: Calcium Gluconate 1gm/50mL 1 GM/50 ML BAG IVPB SCH ×2 (04:24→05:57)
[2021-03-21] MEDS ORDERED: Fluconazole 400 MG/200 ML 400 MG/200 ML BAG IVPB ONE (06:20)
[2021-03-21 06:40] LABS: Magnesium 1.9 mg/dL (1.6-2.6); Phosphorous 3.5 mg/dL (2.7-4.5)
[2021-03-21] MEDS: Pantoprazole 40 MG VIAL IVP SCH ×2 (07:49→20:43)
[2021-03-21] MEDS: 0.9 % Sodium Chloride 1,000 ML IVC SCH ×2 (07:50→17:17)
[2021-03-21] MEDS ORDERED: Aspirin Enteric Coated 81 MG Tablet PO SCH (09:00)
[2021-03-21] MEDS ORDERED: Cyanocobalamin (B-12) 1,000 MCG TABLET PO SCH (09:00)
[2021-03-21] MEDS ORDERED: Cholecalciferol (D-3) 1,000 UNIT (25MCG) TABLET PO SCH (09:00)
[2021-03-21] MEDS ORDERED: Ondansetron ODT 4 MG TAB.RAPDIS SL PRN (09:17)
[2021-03-21] MEDS ORDERED: Nitroglycerin 0.4 MG TAB.SUBL SL PRN (09:17)
[2021-03-21] MEDS: Sucralfate 1 GM TABLET PO SCH ×3 (10:59→23:28)
[2021-03-21 11:50] LABS: Eosinophils # 0.2 K/mcL (0.0-0.6); Monocytes # 0.5 K/mcL (0.0-1.3); Neutrophils # 10.3 K/mcL (1.6-8.9); Platelet Estimate Increased (Normal)
[2021-03-21] MEDS ORDERED: Morphine Sulfate 2 MG/ML SYRINGE IVP PRN (12:08)
[2021-03-21] MEDS: Acetaminophen IV 1,000 MG/100 ML BAG IVPB SCH ×3 (12:14→23:33)
[2021-03-21] MEDS: Gabapentin 300 MG CAPSULE PO SCH (20:44)
[2021-03-22] MEDS: 0.9 % Sodium Chloride 1,000 ML IVC SCH ×2 (04:57→15:55)
[2021-03-22 05:54] LABS: Hematocrit 23.7 % (37.5-50.1); Hemoglobin 8.1 g/dL (12.9-16.9); Mean Corpuscular HGB Conc 34.2 g/dL (31.6-35.5); Mean Corpuscular Hemoglobin 31.9 pg (28.0-33.3); Mean Corpuscular Volume 93.3 fL (83.0-100.0); Mean Platelet Volume 10.1 fL (9.4-12.4); Platelet Count 470 K/mcL (140-400); Red Blood Count 2.54 M/mcL (4.19-5.50); Red Cell Distribution Width 15.2 % (11.5-14.5); White Blood Count 16.4 K/mcL (4.3-11.1)
[2021-03-22 06:09] LABS: BUN/Creatinine Ratio 17 (6-26); Blood Urea Nitrogen 11 mg/dL (8-23); Calcium 7.8 mg/dL (8.6-10.3); Carbon Dioxide 28 mEq/L (23-29); Chloride 107 mEq/L (98-107); Glucose 134 mg/dL (70-105); Magnesium 1.9 mg/dL (1.6-2.6); Osmolality,Calculated 291 (280-300); Potassium 4.1 mEq/L (3.5-5.1); Sodium 140 mEq/L (136-145); eGFR For African Americans > 60 (> 60); eGFR For Non-African Americans > 60 (> 60)
[2021-03-22] MEDS: Acetaminophen IV 1,000 MG/100 ML BAG IVPB SCH ×3 (06:42→20:35)
[2021-03-22] MEDS: lisinopriL 5 MG TABLET PO SCH (08:15)
[2021-03-22] MEDS: Gabapentin 300 MG CAPSULE PO SCH ×3 (08:15→21:44)
[2021-03-22] MEDS: Piperacillin/Tazobactam 3.375 GM in 0.9 % Sodium Chloride Mini Bag 100 ML IVPB SCH ×2 (08:16→15:54)
[2021-03-22] MEDS: Finasteride 5 MG TABLET PO SCH (08:16)
[2021-03-22] MEDS: Sucralfate 1 GM TABLET PO SCH ×4 (08:16→21:44)
[2021-03-22] MEDS: Pantoprazole 40 MG VIAL IVP SCH (08:17)
[2021-03-22] MEDS: Fluconazole 200 MG/100 ML 200 MG/100 ML BAG IVPB SCH (08:17)
[2021-03-23] MEDS: Pantoprazole 40 MG VIAL IVP SCH ×2 (00:08→07:52)
[2021-03-23] MEDS: Piperacillin/Tazobactam 3.375 GM in 0.9 % Sodium Chloride Mini Bag 100 ML IVPB SCH ×4 (01:00→23:32)
[2021-03-23] MEDS: Acetaminophen IV 1,000 MG/100 ML BAG IVPB SCH ×2 (01:08→05:36)
[2021-03-23] MEDS: 0.9 % Sodium Chloride 1,000 ML IVC SCH (07:49)
[2021-03-23] MEDS: lisinopriL 5 MG TABLET PO SCH (09:34)
[2021-03-23] MEDS: Sucralfate 1 GM TABLET PO SCH ×4 (09:34→20:46)
[2021-03-23] MEDS: Gabapentin 300 MG CAPSULE PO SCH ×3 (09:35→20:46)
[2021-03-23] MEDS: Finasteride 5 MG TABLET PO SCH (09:35)
[2021-03-23] MEDS: Fluconazole 200 MG/100 ML 200 MG/100 ML BAG IVPB SCH (13:35)
[2021-03-24 05:01] LABS: Hematocrit 26.2 % (37.5-50.1); Hemoglobin 8.5 g/dL (12.9-16.9); Mean Corpuscular HGB Conc 32.4 g/dL (31.6-35.5); Mean Corpuscular Hemoglobin 30.7 pg (28.0-33.3); Mean Corpuscular Volume 94.6 fL (83.0-100.0); Mean Platelet Volume 10.5 fL (9.4-12.4); Platelet Count 556 K/mcL (140-400); Red Blood Count 2.77 M/mcL (4.19-5.50); Red Cell Distribution Width 15.2 % (11.5-14.5); White Blood Count 18.7 K/mcL (4.3-11.1)
[2021-03-24 05:15] LABS: BUN/Creatinine Ratio 10 (6-26); Blood Urea Nitrogen 7 mg/dL (8-23); Calcium 7.5 mg/dL (8.6-10.3); Carbon Dioxide 27 mEq/L (23-29); Chloride 104 mEq/L (98-107); Glucose 96 mg/dL (70-105); Magnesium 1.8 mg/dL (1.6-2.6); Osmolality,Calculated 280 (280-300); Potassium 3.3 mEq/L (3.5-5.1); Sodium 136 mEq/L (136-145); eGFR For African Americans > 60 (> 60); eGFR For Non-African Americans > 60 (> 60)
[2021-03-24] MEDS ORDERED: Magnesium Sulfate 1 GM/102 ML PIGGYBACK IVPB ONE (07:18)
[2021-03-24] MEDS: lisinopriL 5 MG TABLET PO SCH (08:03)
[2021-03-24] MEDS: Gabapentin 300 MG CAPSULE PO SCH ×3 (08:04→20:26)
[2021-03-24] MEDS: Finasteride 5 MG TABLET PO SCH (08:04)
[2021-03-24] MEDS: Sucralfate 1 GM TABLET PO SCH ×4 (08:04→20:26)
[2021-03-24] MEDS: Piperacillin/Tazobactam 3.375 GM in 0.9 % Sodium Chloride Mini Bag 100 ML IVPB SCH ×3 (08:04→23:33)
[2021-03-24] MEDS: Fluconazole 200 MG/100 ML 200 MG/100 ML BAG IVPB SCH (08:05)
[2021-03-25 04:55] LABS: Hematocrit 24.5 % (37.5-50.1); Hemoglobin 8.1 g/dL (12.9-16.9); Mean Corpuscular HGB Conc 33.1 g/dL (31.6-35.5); Mean Corpuscular Hemoglobin 31.5 pg (28.0-33.3); Mean Corpuscular Volume 95.3 fL (83.0-100.0); Mean Platelet Volume 10.6 fL (9.4-12.4); Platelet Count 597 K/mcL (140-400); Red Blood Count 2.57 M/mcL (4.19-5.50); Red Cell Distribution Width 15.2 % (11.5-14.5); White Blood Count 16.6 K/mcL (4.3-11.1)
[2021-03-25 05:07] LABS: Alanine Aminotransferase 15 Units/L (7-52); Albumin 2.1 g/dL (3.5-5.7); Albumin/Globulin Ratio 0.8 (1.1-2.2); Alkaline Phosphatase 86 Units/L (34-104); Aspartate Amino Transferase 17 Units/L (13-39); Bilirubin,Total 0.5 mg/dL (0.3-1.0); Calcium 7.6 mg/dL (8.6-10.3); Carbon Dioxide 28 mEq/L (23-29); Chloride 106 mEq/L (98-107); Globulin 2.6 g/dL (2.4-3.5); Glucose 105 mg/dL (70-105); Potassium 3.6 mEq/L (3.5-5.1); Sodium 137 mEq/L (136-145); Total Protein 4.7 g/dL (6.4-8.9); eGFR For African Americans > 60 (> 60); eGFR For Non-African Americans > 60 (> 60)
[2021-03-25 05:12] LABS: BUN/Creatinine Ratio 12 (6-26); Blood Urea Nitrogen 7 mg/dL (8-23); Osmolality,Calculated 282 (280-300)
[2021-03-25] MEDS: Sucralfate 1 GM TABLET PO SCH ×3 (09:00→15:20)
[2021-03-25] MEDS: Fluconazole 200 MG/100 ML 200 MG/100 ML BAG IVPB SCH (09:01)
[2021-03-25] MEDS: Gabapentin 300 MG CAPSULE PO SCH ×2 (09:01→15:20)
[2021-03-25] MEDS: lisinopriL 5 MG TABLET PO SCH (09:01)
[2021-03-25] MEDS: Piperacillin/Tazobactam 3.375 GM in 0.9 % Sodium Chloride Mini Bag 100 ML IVPB SCH (09:01)
[2021-03-25] MEDS: Finasteride 5 MG TABLET PO SCH (09:02)
[2021-03-25 10:36] VITALS: BP 122/73; PULSE 74; TEMP 98.9; O2SAT 97
== END 2021-03-25 15:28 | disposition home health service (06) | DRG 907 ==
LOC: EMEROOARM 10:24 → 3ANU 15:45 → SUATTDRO 16:03 → 3ANU 16:03
PROVIDERS: ADMIT Family Medicine; ATTEND Internal Medicine

== ENCOUNTER 2021-07-29 06:17 | Inpatient (IN) ==
[2021-07-29] MEDS ORDERED: cefOXitin 2,000 MG in 0.9 % Sodium Chloride 20 ML IVP ONE (06:37)
[2021-07-29] MEDS ORDERED: Ringers Solution, Lactated 1,000 ML IVC SCH (06:45)
[2021-07-29] MEDS ORDERED: *HR* Propofol 200 MG/20 ML VIAL IVP ONE (06:59)
[2021-07-29] MEDS ORDERED: *HR* Midazolam HCl 2 MG/2 ML VIAL ONE (07:14)
[2021-07-29] MEDS ORDERED: *HR* FentaNYL (PF) 100 MCG/2 ML VIAL ONE ×3 (07:15→10:43)
[2021-07-29] MEDS ORDERED: Ketamine HCL *QUVA* 50mg (1mL) SYRINGE ONE (07:16)
[2021-07-29] MEDS ORDERED: *HR* OxyCODONE Immed Rel 5 MG TABLET PO PRN (07:29)
[2021-07-29] MEDS ORDERED: Promethazine 6.25 MG in Water for inj. (sterile) 20 ML IVPB PRN (07:29)
[2021-07-29] MEDS ORDERED: Ondansetron 4 MG/2 ML VIAL IVP PRN ×2 (07:29→13:08)
[2021-07-29] MEDS ORDERED: Acetaminophen IV 1,000 MG/100 ML BAG IVPB ONE ×2 (08:14→11:33)
[2021-07-29] MEDS ORDERED: Lidocaine -MPF 2% 2 ML VIAL ONE (09:21)
[2021-07-29] MEDS ORDERED: *HR* Rocuronium Bromide 50 MG/5 ML VIAL ONE (09:21)
[2021-07-29] MEDS ORDERED: Ondansetron 4 MG/2 ML VIAL ONE (09:21)
[2021-07-29] MEDS ORDERED: *HR* Succinylcholine 200 MG/10 ML VIAL IVP ONE (09:21)
[2021-07-29] MEDS ORDERED: CefOXitin 1,000 MG VIAL ONE ×2 (10:18→19:46)
[2021-07-29] MEDS ORDERED: Sugammadex Sodium 200 MG/2 ML VIAL IV ONE (11:05)
[2021-07-29] MEDS: *HR* HYDROmorphone PF 0.5 MG/0.5 ML SYRINGE IVP PRN ×3 (11:38→12:27)
[2021-07-29] MEDS ORDERED: *HR* LORazepam 2 MG/ML VIAL IVP PRN (13:08)
[2021-07-29] MEDS ORDERED: *HR* HYDROmorphone PCA *PREMADE* 20 MG/1MG/ML (20mL) PCA VIAL IVC PRN (13:08)
[2021-07-29] MEDS ORDERED: Naloxone 0.4 MG/ML INJ IVP PRN (13:08)
[2021-07-29] MEDS: Acetaminophen IV 1,000 MG/100 ML BAG IVPB SCH ×2 (14:24→19:53)
[2021-07-29] MEDS: 0.9 % Sodium Chloride 1,000 ML IVC SCH (14:44)
[2021-07-29] MEDS: *HR* Metoprolol 5 MG/5 ML VIAL IVP SCH ×2 (14:47→19:52)
[2021-07-29] MEDS: Ketorolac 30 MG/ML VIAL IVP SCH ×2 (14:47→19:51)
[2021-07-29] MEDS: cefOXitin 1,000 MG in 0.9 % Sodium Chloride 10 ML IVP SCH (19:50)
[2021-07-30] MEDS: Acetaminophen IV 1,000 MG/100 ML BAG IVPB SCH ×5 (00:32→23:50)
[2021-07-30] MEDS: 0.9 % Sodium Chloride 1,000 ML IVC SCH ×3 (00:33→20:07)
[2021-07-30] MEDS: cefOXitin 1,000 MG in 0.9 % Sodium Chloride 10 ML IVP SCH ×2 (00:35→08:49)
[2021-07-30] MEDS: Ketorolac 30 MG/ML VIAL IVP SCH ×2 (00:38→06:26)
[2021-07-30] MEDS: *HR* Metoprolol 5 MG/5 ML VIAL IVP SCH ×4 (00:39→18:28)
[2021-07-30 06:36] LABS: Basophils % 0.1 %; Hematocrit 30.2 % (37.5-50.1); Hemoglobin 10.1 g/dL (12.9-16.9); Immature Granulocytes % 0.4 % (0-4); Lymphocytes # 1.4 K/mcL (0.6-4.6); Mean Corpuscular HGB Conc 33.4 g/dL (31.6-35.5); Mean Corpuscular Hemoglobin 30.1 pg (28.0-33.3); Mean Corpuscular Volume 89.9 fL (83.0-100.0); Mean Platelet Volume 10.7 fL (9.4-12.4); Monocytes # 0.9 K/mcL (0.0-1.3); Monocytes % 10.6 %; Platelet Count 237 K/mcL (140-400); Red Blood Count 3.36 M/mcL (4.19-5.50); Red Cell Distribution Width 16.1 % (11.5-14.5); Segmented Neutrophils % 71.9 %; White Blood Count 8.4 K/mcL (4.3-11.1)
[2021-07-30 06:51] LABS: BUN/Creatinine Ratio 16 (6-26); Blood Urea Nitrogen 16 mg/dL (8-23); Calcium 7.8 mg/dL (8.6-10.3); Carbon Dioxide 24 mEq/L (23-29); Chloride 107 mEq/L (98-107); Glucose 113 mg/dL (70-105); Osmolality,Calculated 282 (280-300); Potassium 4.4 mEq/L (3.5-5.1); Sodium 135 mEq/L (136-145); eGFR For African Americans > 60 (> 60); eGFR For Non-African Americans > 60 (> 60)
[2021-07-30] MEDS: Pantoprazole 40 MG VIAL IVP SCH (08:50)
[2021-07-30 10:04] LABS: % Iron Saturation 12 % (20-55); Iron 35 mcg/dL (65-175); Transferrin 211 mg/dL (203-362)
[2021-07-30] MEDS: *HR* Heparin 5,000 UNIT/ML VIAL SQ SCH ×2 (11:33→18:28)
[2021-07-30] MEDS: Iron Sucrose Complex 250 MG in 0.9 % Sodium Chloride 250 ML IVPB SCH (11:34)
[2021-07-31] MEDS: *HR* Metoprolol 5 MG/5 ML VIAL IVP SCH ×4 (00:02→18:32)
[2021-07-31 03:23] LABS: Basophils % 0.5 %; Eosinophils # 0.2 K/mcL (0.0-0.6); Eosinophils % 2.2 %; Hemoglobin 9.8 g/dL (12.9-16.9); Immature Granulocytes % 0.4 % (0-4); Lymphocytes # 1.6 K/mcL (0.6-4.6); Lymphocytes % 22.1 %; Mean Corpuscular HGB Conc 33.8 g/dL (31.6-35.5); Mean Corpuscular Hemoglobin 30.2 pg (28.0-33.3); Mean Corpuscular Volume 89.5 fL (83.0-100.0); Mean Platelet Volume 10.5 fL (9.4-12.4); Monocytes # 0.7 K/mcL (0.0-1.3); Monocytes % 9.2 %; Neutrophils # 4.9 K/mcL (1.6-8.9); Platelet Count 213 K/mcL (140-400); Red Blood Count 3.24 M/mcL (4.19-5.50); Red Cell Distribution Width 16.1 % (11.5-14.5); Segmented Neutrophils % 65.6 %; White Blood Count 7.4 K/mcL (4.3-11.1)
[2021-07-31 03:36] LABS: BUN/Creatinine Ratio 14 (6-26); Blood Urea Nitrogen 11 mg/dL (8-23); Calcium 8.1 mg/dL (8.6-10.3); Carbon Dioxide 19 mEq/L (23-29); Chloride 109 mEq/L (98-107); Glucose 81 mg/dL (70-105); Magnesium 1.4 mg/dL (1.6-2.6); Osmolality,Calculated 284 (280-300); Phosphorous 2.1 mg/dL (2.7-4.5); Potassium 4.3 mEq/L (3.5-5.1); Sodium 138 mEq/L (136-145); eGFR For African Americans > 60 (> 60); eGFR For Non-African Americans > 60 (> 60)
[2021-07-31] MEDS: Acetaminophen IV 1,000 MG/100 ML BAG IVPB SCH ×3 (05:33→18:32)
[2021-07-31] MEDS: *HR* Heparin 5,000 UNIT/ML VIAL SQ SCH ×2 (05:36→18:32)
[2021-07-31] MEDS: 0.9 % Sodium Chloride 1,000 ML IVC SCH ×2 (05:36→16:20)
[2021-07-31] MEDS: Pantoprazole 40 MG VIAL IVP SCH (10:35)
[2021-07-31] MEDS: Iron Sucrose Complex 250 MG in 0.9 % Sodium Chloride 250 ML IVPB SCH (10:35)
[2021-08-01] MEDS: Acetaminophen IV 1,000 MG/100 ML BAG IVPB SCH ×5 (00:28→23:36)
[2021-08-01] MEDS: *HR* Metoprolol 5 MG/5 ML VIAL IVP SCH ×2 (00:28→05:50)
[2021-08-01] MEDS: 0.9 % Sodium Chloride 1,000 ML IVC SCH ×3 (00:37→21:33)
[2021-08-01 05:18] LABS: Basophils % 0.5 %; Eosinophils # 0.4 K/mcL (0.0-0.6); Eosinophils % 4.5 %; Hematocrit 29.4 % (37.5-50.1); Hemoglobin 9.6 g/dL (12.9-16.9); Immature Granulocytes % 0.3 % (0-4); Lymphocytes # 1.1 K/mcL (0.6-4.6); Lymphocytes % 13.9 %; Mean Corpuscular HGB Conc 32.7 g/dL (31.6-35.5); Mean Corpuscular Hemoglobin 30.1 pg (28.0-33.3); Mean Corpuscular Volume 92.2 fL (83.0-100.0); Mean Platelet Volume 11.1 fL (9.4-12.4); Monocytes # 0.6 K/mcL (0.0-1.3); Monocytes % 7.4 %; Neutrophils # 5.8 K/mcL (1.6-8.9); Platelet Count 224 K/mcL (140-400); Red Blood Count 3.19 M/mcL (4.19-5.50); Red Cell Distribution Width 16.3 % (11.5-14.5); Segmented Neutrophils % 73.4 %; White Blood Count 7.9 K/mcL (4.3-11.1)
[2021-08-01 05:32] LABS: BUN/Creatinine Ratio 10 (6-26); Blood Urea Nitrogen 7 mg/dL (8-23); Carbon Dioxide 14 mEq/L (23-29); Chloride 107 mEq/L (98-107); Glucose 70 mg/dL (70-105); Magnesium 1.4 mg/dL (1.6-2.6); Osmolality,Calculated 276 (280-300); Potassium 3.8 mEq/L (3.5-5.1); Sodium 135 mEq/L (136-145); eGFR For African Americans > 60 (> 60); eGFR For Non-African Americans > 60 (> 60)
[2021-08-01] MEDS: *HR* Heparin 5,000 UNIT/ML VIAL SQ SCH ×2 (05:50→18:14)
[2021-08-01] MEDS: Pantoprazole 40 MG VIAL IVP SCH (09:56)
[2021-08-01] MEDS: Iron Sucrose Complex 250 MG in 0.9 % Sodium Chloride 250 ML IVPB SCH (10:02)
[2021-08-01] MEDS ORDERED: Morphine Sulfate Oral CONC 10 MG/0.5 ML ORAL.SYG SL PRN (10:34)
[2021-08-01] MEDS: *HR* OxyCODONE/APAP 5/325 TABLET PO PRN (21:33)
[2021-08-02] MEDS: *HR* Heparin 5,000 UNIT/ML VIAL SQ SCH ×2 (05:44→18:10)
[2021-08-02] MEDS: Acetaminophen IV 1,000 MG/100 ML BAG IVPB SCH (05:44)
[2021-08-02] MEDS: Iron Sucrose Complex 250 MG in 0.9 % Sodium Chloride 250 ML IVPB SCH (07:38)
[2021-08-02] MEDS: Aspirin 81 MG TAB.CHEW PO SCH (07:40)
[2021-08-02] MEDS: lisinopriL 5 MG TABLET PO SCH (07:40)
[2021-08-02] MEDS ORDERED: Acetaminophen 325 MG TABLET PO PRN (10:27)
[2021-08-02] MEDS: *HR* OxyCODONE/APAP 5/325 TABLET PO PRN (20:38)
[2021-08-02 23:50] VITALS: O2SAT 95
[2021-08-03] MEDS: *HR* Heparin 5,000 UNIT/ML VIAL SQ SCH (05:43)
[2021-08-03] MEDS: *HR* OxyCODONE/APAP 5/325 TABLET PO PRN (05:43)
[2021-08-03] MEDS: lisinopriL 5 MG TABLET PO SCH (07:45)
[2021-08-03] MEDS: Aspirin 81 MG TAB.CHEW PO SCH (07:45)
[2021-08-03 08:51] VITALS: BP 105/55; PULSE 76; TEMP 98.2
== END 2021-08-03 11:51 | disposition home or self-care (01) | DRG 346 ==
LOC: SAMDAY 06:17 → 3ANU 07:04
PROVIDERS: ADMIT Surgery; ATTEND Surgery